=== PATIENT | female | born 1945 | race Caucasian/White ===

== ENCOUNTER 2016-05-13 09:29 | Outpatient (CLI) | payer MEDICARE, OTHER | END 2016-05-13 09:30 | disposition EMS.NT | DX: R53.1 Weakness (principal); W18.30XA Fall on same level, unspecified, initial encounter; Y92.9 Unspecified place or not applicable ==

== ENCOUNTER 2016-05-14 18:36 | Outpatient (CLI) | payer MEDICARE, OTHER | END 2016-05-14 18:37 | disposition critical access hospital (66) | DX: R53.1 Weakness (principal) | CPT/HCPCS: A0425; A0429 ==

== ENCOUNTER 2016-05-14 18:44 | Observation (INO) | payer MEDICARE, OTHER ==
[2016-05-14] MEDS ORDERED: SODIUM CHLORIDE 0.9% 1,000 ML IV ONE (19:38)
--- NOTE | 2016-05-14 20:30 | ED Physician Documentation ---
History of Present Illness - Stated complaint Stated Complaint: WEAKNESS - Chief complaint Chief Complaint: Ext Problem - History obtained from History obtained from: Patient - History of Present Illness Timing: How many days ago (2) Pain level now: 0 Improved by: rest Worsened by: attempts to stand or ambulate - Additonal information Additional information: patient is a poor historian, does not seem to be familiar with some of her medical history (for example, she is on supplemental [place] oxygen at home x 3 years , but does not know why and tells me she is unaware of any pulmonary problems or diagnoses). Patient fell 2 nights ago due to generalized weakness at home, was unable to get back up (again, due to generalized weakness). manager trust arrived, patient refused transport, but instead was helped into a chair. She stayed in that chair until tonight, when she finally decided to call 911 because she was too weak to get out of the chair. Reportedly, she had feces and urine on her dress on arrival to ED. Review of Systems Constitutional: reports: Reviewed and negative Eyes: reports: Reviewed and negative Ears: reports: Reviewed and negative Nose: reports: Reviewed and negative Throat: reports: Reviewed and negative Cardiac: reports: Reviewed and negative Respiratory: reports: Reviewed and negative GI: reports: Reviewed and negative : reports: Reviewed and negative Musculoskeletal: reports: Reviewed and negative Neurologic: reports: Generalized weakness. denies: Focal weakness, Numbness, Headache PD PAST MEDICAL HISTORY - Past Medical History Past Medical History: Yes Cardiovascular: Hypertension, High cholesterol, Deep vein thrombosis Respiratory: COPD, Sleep apnea, CPAP use Neuro: Peripheral neuropathy Endocrine/Autoimmune: Type 2 diabetes GI: None : Incontinence HEENT: None Musculoskeletal: Chronic back pain Derm: Psoriasis - Past Surgical History Past Surgical History: Yes HEENT: Tonsil/Adenoidectomy - Present Medications Home Medications: Ambulatory Orders Medication Instructions Recorded Confirmed Aspirin [Barbara Chewable Aspirin] 1 tab.chew PO DAILY 02/14/14 05/14/16 Cholecalciferol (Vitamin D3) 2,000 unit PO DAILY 02/14/14 05/14/16 [Vitamin D3] Furosemide 40 mg PO DAILY 02/14/14 05/14/16 Glyburide 1 tab PO BID 02/14/14 05/14/16 Insulin Glargine [Lantus Solostar] 100 units SQ DAILY 02/14/14 05/14/16 Lovastatin 40 mg PO DAILY 02/14/14 05/14/16 Metoprolol Tartrate 1 tab PO BID 02/14/14 05/14/16 - Allergies Allergies/Adverse Reactions: Allergies Allergy/AdvReac Type Severity Reaction Status Date / Time No Known Drug Allergies Allergy Verified 02/14/14 16:33 - Social History Does the pt smoke?: No Smoking Status: Never smoker Does the pt drink ETOH?: No Does the pt have substance abuse?: No - Immunizations Immunizations are current?: No - POLST Patient has POLST: Yes PD ED PE NORMAL - Vitals Vital signs reviewed: Yes - General General: Alert and oriented X 3, No acute distress, Other (morbid obesity) - HEENT HEENT: PERRL, EOMI, Moist mucous membranes - Neck Neck: Supple, no meningeal sign - Respiratory Respiratory: Other (distant breath sounds, R>L) - Abdomen Abdomen: Soft, Non tender, Non distended - Back Back: No CVA TTP - Derm Derm: Warm and dry, Other (bilateral inguinal exanthem with sharp margins c/w intertrigo (dry, scaly edges; hyperpigmented exanthem)) - Extremities Extremities: No tenderness to palpate, Normal ROM s pain - Neuro Neuro: Alert and oriented X 3 PD ED PE EXPANDED - Cardiac Cardiac: Tachy, Irregularly irregular - Rectal Rectal: Heme Occult Neg - QC+, Aluminum Sheet Cutter present - Extremities Extremities: Pedal edema bilateral Results - Vitals Vitals: Vital Signs - 24 hr 05/14/16 05/14/16 05/14/16 18:51 20:46 20:49 Temperature 36.8 C 36.8 C Heart Rate 129 H 85 134 H Respiratory 18 22 18 Rate Blood Pressure 161/79 H 153/79 H 153/79 H O2 Saturation 92 99 98 05/14/16 05/14/16 05/15/16 21:54 22:30 00:51 Temperature 36.4 C L 36.3 C L Heart Rate 61 79 91 Respiratory 18 28 H 20 Rate Blood Pressure 121/97 H 133/63 H 137/93 H O2 Saturation 98 92 95 Oxygen O2 Source Nasal cannula Oxygen Flow Rate 93 - EKG (time done) No standard instances Rate: Rate (enter#) (134) Rhythm: NSR [place]: Normal QRS: Normal Ischemia: Normal ST segments, T wave inversion (V2-V6) - Labs Labs: Laboratory Tests 05/14/16 05/14/16 05/14/16 20:15 20:15 20:30 WBC 8.7 RBC 3.86 L Hgb 8.7 L Hct 29.4 L MCV 76.1 L MCH 22.6 L MCHC 29.6 L RDW 19.0 H Plt Count 269 MPV 6.8 L Neut # 7.4 H Lymph # 0.8 L [place] # 0.4 Eos # 0.0 Baso # 0.0 Absolute Nucleated RBC 0.00 Nucleated RBCs 0.0 Manual Slide Review Indicated Platelet Estimate NORMAL (130-450,000) Platelet Morphology NORMAL APPEARANCE RBC Morph Micro Appear 1+ ANISOCYTOSIS VBG pH VBG pCO2 VBG pO2 VBG HCO3 VBG Total CO2 VBG O2 Saturation VBG Base Excess Sodium 131 L Potassium 3.7 Chloride 94 L Carbon Dioxide 27 Anion Gap 10.0 BUN 28 H Creatinine 1.4 H Estimated GFR (MDRD) 37 L Glucose 391 H Lactic Acid Calcium 8.0 L Total Creatine Kinase CK-MB (CK-2) Troponin I < 0.04 B-Natriuretic Peptide TSH Urine Color Urine Clarity Urine pH Ur Specific [place] Urine Protein Urine Glucose (UA) Urine Ketones Urine Occult Blood Urine Nitrite Urine Bilirubin Urine Urobilinogen Ur Leukocyte Esterase Urine RBC Urine WBC Ur Squamous Epith Cells Urine Bacteria Ur Microscopic Review Urine Culture Comments 05/14/16 05/14/16 05/14/16 20:40 20:40 20:40 WBC RBC Hgb Hct MCV MCH MCHC RDW Plt Count MPV Neut # Lymph # [place] # Eos # Baso # Absolute Nucleated RBC Nucleated RBCs Manual Slide Review Platelet Estimate Platelet Morphology RBC Morph Micro Appear VBG pH VBG pCO2 VBG pO2 VBG HCO3 VBG Total CO2 VBG O2 Saturation VBG Base Excess Sodium Potassium Chloride Carbon Dioxide Anion Gap BUN Creatinine Estimated GFR (MDRD) Glucose Lactic Acid 1.5 Calcium Total Creatine Kinase 150 CK-MB (CK-2) 2.4 Troponin I B-Natriuretic Peptide TSH Urine Color Urine Clarity Urine pH Ur Specific [place] Urine Protein Urine Glucose (UA) Urine Ketones Urine Occult Blood Urine Nitrite Urine Bilirubin Urine Urobilinogen Ur Leukocyte Esterase Urine RBC Urine WBC Ur Squamous Epith Cells Urine Bacteria Ur Microscopic Review Urine Culture Comments 05/14/16 05/14/16 05/15/16 23:30 23:30 01:15 WBC RBC Hgb Hct MCV MCH MCHC RDW Plt Count MPV Neut # Lymph # [place] # Eos # Baso # Absolute Nucleated RBC Nucleated RBCs Manual Slide Review Platelet Estimate Platelet Morphology RBC Morph Micro Appear VBG pH VBG pCO2 VBG pO2 VBG HCO3 VBG Total CO2 VBG O2 Saturation VBG Base Excess Sodium Potassium Chloride Carbon Dioxide Anion Gap BUN Creatinine Estimated GFR (MDRD) Glucose Lactic Acid Calcium Total Creatine Kinase CK-MB (CK-2) Troponin I B-Natriuretic Peptide 363 H TSH 6.12 H Urine Color YELLOW Urine Clarity CLEAR Urine pH 6.0 Ur Specific [place] 1.015 Urine Protein 100 H Urine Glucose (UA) >=1000 H Urine Ketones TRACE Urine Occult Blood MODERATE H Urine Nitrite NEGATIVE Urine Bilirubin NEGATIVE Urine Urobilinogen 0.2 (NORMAL) Ur Leukocyte Esterase TRACE H Urine RBC 6-10 H Urine WBC 0-3 Ur Squamous Epith Cells FEW Squamous Urine Bacteria Rare Ur Microscopic Review INDICATED Urine Culture Comments INDICATED 05/15/16 02:00 WBC RBC Hgb Hct MCV MCH MCHC RDW Plt Count MPV Neut # Lymph # [place] # Eos # Baso # Absolute Nucleated RBC Nucleated RBCs Manual Slide Review Platelet Estimate Platelet Morphology RBC Morph Micro Appear VBG pH 7.446 H VBG pCO2 37.1 L VBG pO2 147.7 H VBG HCO3 25.0 VBG Total CO2 26.1 VBG O2 Saturation 98.8 H VBG Base Excess 1.0 Sodium Potassium Chloride Carbon Dioxide Anion Gap BUN Creatinine Estimated GFR (MDRD) Glucose Lactic Acid Calcium Total Creatine Kinase CK-MB (CK-2) Troponin I B-Natriuretic Peptide TSH Urine Color Urine Clarity Urine pH Ur Specific [place] Urine Protein Urine Glucose (UA) Urine Ketones Urine Occult Blood Urine Nitrite Urine Bilirubin Urine Urobilinogen Ur Leukocyte Esterase Urine RBC Urine WBC Ur Squamous Epith Cells Urine Bacteria Ur Microscopic Review Urine Culture Comments - Rads (name of study) chest xray Radiology: Prelim report reviewed, See rad report PD MEDICAL DECISION MAKING - ED course Complexity details: reviewed results, re-evaluated patient, considered differential, d/w patient ED course: Patient had good rate control with 5mg IV metoprolol. She would have brief, sudden increased heart rate to 130s-150s, but without specific intervention, the heart rate would return to 80s-90s within 1-2 minutes. Departure - Departure Disposition: ED Place in Observation Clinical Impression: Weakness, Hyperglycemia, Anemia Condition: Stable Discharge Date/Time: 05/15/16 03:24
[2016-05-14 20:43] LABS: BASOPHILS % (AUTO) 0.5 %; EOSINOPHILS % (AUTO) 0.3 %; HCT - HEMATOCRIT 29.4 % (37.0-47.0); HGB - HEMOGLOBIN 8.7 g/dL (12.0-16.0); LYMPHOCYTES # (AUTO) 0.8 10^3/uL (1.5-3.5); LYMPHOCYTES % (AUTO) 8.8 %; MEAN CORPUSCULAR HEMOGLOBIN 22.6 pg (27.0-31.0); MEAN CORPUSCULAR HGB CONC 29.6 g/dL (32.0-36.0); MEAN CORPUSCULAR VOLUME 76.1 fL (81.0-99.0); MEAN PLATELET VOLUME 6.8 fL (7.9-10.8); MONOCYTES # (AUTO) 0.4 10^3/uL (0.0-1.0); MONOCYTES % (AUTO) 5.2 %; NEUTROPHILS # (AUTO) 7.4 10^3/uL (1.5-6.6); NEUTROPHILS % (AUTO) 85.2 %; RED BLOOD COUNT 3.86 10^6/uL (4.20-5.40); UNCORRECTED WHITE BLOOD COUNT 8.7 x10^3/uL; WHITE BLOOD COUNT 8.7 x10^3/uL (4.8-10.8)
[2016-05-14] MEDS ORDERED: METOPROLOL 5 MG/5 ML VIAL IVP STA (20:48)
[2016-05-14 20:49] LABS: CREATININE 1.4 mg/dL (0.4-1.0); POTASSIUM 3.7 mmol/L (3.5-5.0)
[2016-05-14] MEDS ORDERED: METOPROLOL 5 MG/5 ML VIAL IVP ONE (20:50)
[2016-05-14 21:01] LABS: PLATELET ESTIMATE, MANUAL NORMAL (130-450,000) (NORMAL); PLATELET MORPHOLOGY NORMAL APPEARANCE (NORMAL)
--- NOTE | 2016-05-14 21:28 | XRAY Preliminary Report ---
Exam: XR Chest 2 View PA/LAT IMPRESSION: 1. Moderate cardiomegaly and borderline vascular congestion. 2. The relatively gradual increase in the caliber of the right hilum encouraging this most likely rep resents benign etiology such as secondary to pulmonary arterial hypertension. However, malignant veronica opathy or mass lesion not excluded. [facility] SITE ID: [id number]
--- NOTE | 2016-05-14 21:39 | XRAY Report ---
EXAM: CHEST RADIOGRAPHY EXAM DATE: 05/14/2016 08:47 PM. CLINICAL HISTORY: Weakness. COMPARISON: 05/02/2012. No earlier exams. TECHNIQUE: 2 views. FINDINGS: Lungs/Pleura: Borderline vascular congestion. No focal consolidation, effusion nor pneumothorax. Norm al lung volumes. Mediastinum: Increasing cardiomegaly now moderate in degree. Mild increase in the right hilar enlarge ment. No mediastinal widening. Other: None. IMPRESSION: 1. Moderate cardiomegaly and borderline vascular congestion. 2. The relatively gradual increase in the caliber of the right hilum encouraging, this most likely re presents benign etiology such as secondary to pulmonary arterial hypertension. However, malignant angela nopathy or mass lesion not excluded. [facility] Referring Provider Line: [phone] SITE ID: [id number]
[2016-05-15 01:25] LABS: BILIRUBIN,URINE NEGATIVE (NEGATIVE)
[2016-05-15 01:26] LABS: UA w/ MICROSCOPIC CHARGE YES
[2016-05-15 01:31] LABS: UR CULTURE IF IND INDICATED; WBC,URINE 0-3 /HPF (0-5)
[2016-05-15 02:09] LABS: VBG PH 7.446 (7.31-7.41); VBG TOTAL CO2 26.1 mmol/L (24-29)
[2016-05-15] MEDS ORDERED: METOPROLOL 5 MG/5 ML VIAL IVP PRN (02:09)
[2016-05-15] MEDS ORDERED: ACETAMINOPHEN 325 MG TABLET PO PRN (02:09)
[2016-05-15] MEDS ORDERED: SODIUM CHLORIDE FLUSH 0.9% 10 ML SYRINGE IVP PRN (02:09)
[2016-05-15] MEDS ORDERED: ONDANSETRON 4 MG/2 ML VIAL IVP PRN (02:09)
[2016-05-15 02:10] LABS: VBG OXYGEN SATURATION 98.8 % (60-80)
[2016-05-15] MEDS ORDERED: INSULIN GLARGINE 300 UNIT/3 ML PEN SUBQ SCH ×2 (03:00→21:00)
[2016-05-15] MEDS ORDERED: SODIUM CHLORIDE 0.9% 1,000 ML IV SCH (03:00)
--- NOTE | 2016-05-15 03:06 | CT Preliminary Report ---
Exam: CT Head W/O IMPRESSION: Moderate senescent changes without evidence of acute intracranial abnormality. [facility] SITE ID: [id number]
--- NOTE | 2016-05-15 03:09 | CT Report ---
EXAM: CT HEAD EXAM DATE: 05/15/2016 02:50 AM. CLINICAL HISTORY: Weakness, recent fall. COMPARISON: 05/03/2012. TECHNIQUE: Multiaxial CT images were obtained from the foramen magnum to the vertex. IV contrast: Non e. Reformats: Coronal. In accordance with CT protocol optimization, one or more of the following dose reduction techniques w ere utilized for this exam: automated exposure control, adjustment of mA and/or KV based on patient s ize, or use of iterative reconstructive technique. FINDINGS: Parenchyma: No intraparenchymal hemorrhage. No evidence of mass, midline shift or CT findings of acut e infarction. Castro-white differentiation is distinct. Diffuse moderate chronic microangiopathic white matter changes are evident. Extraaxial Spaces: Normal for age. No subdural or epidural collections identified. Ventricles: The ventricles and cortical sulci are enlarged, consistent with age-related tissue loss. Sinuses: Imaged paranasal sinuses, orbits, and mastoids show no significant abnormality. Bones: No evidence of fracture or calvarial defect. Other: None. IMPRESSION: Moderate senescent changes without evidence of acute intracranial abnormality. [facility] Referring Provider Line: [phone] SITE ID: [id number]
--- NOTE | 2016-05-15 04:00 | HISTORY & PHYSICAL EXAMINATION ---
DATE OF ADMISSION: 05/15/2016 PRIMARY CARE PHYSICIAN: Alexandra Steinberg MD. CHIEF COMPLAINT: Brought in by EMS for weakness. HISTORY OF PRESENT ILLNESS: This is a 70-year-old female who is an extremely poor historian who was brought in today. Apparently, she fell 2 nights ago and was unable to get back up. architectural technologist arrived then and the patient refused transport, but was helped to a chair, and apparently 911 was called again tonight because she was too weak to get out of her chair. Her evaluation in the emergency room does show RVR AFib, which did respond to IV metoprolol per ER MD. Labs were significant for anemia with a hematocrit of 29.4, MCV 76.1. Per ER MD, she was guaiac negative. No old labs are available at this time. She also has a calculated GFR of 37 with a BUN of 28, creatinine of 1.4. Per old records that could be found in the EMR, which is [facility], she does have stage IV chronic renal failure secondary to hypertensive and diabetic disease. This note is from 07/2012. She also has type 2 diabetes, for which she is on Lantus therapy. Per ER note, her glucose on labs was 391. No LFTs were obtained, total CK was 150. Troponin was less than 0.04. BNP 363. No documentation of previous echocardiograms. Of note, it appears the patient has CHRISTIANO. She has morbid obesity and does use CPAP at home. Again, unable to get a good history from her , as she is generally just sarcastic with her answers and vague. A venous blood gas is pending at the time of this dictation. CT of head without contrast is pending at the time of this dictation. PAST MEDICAL HISTORY 1. Morbid obesity. 2. CHRISTIANO with use of CPAP. 3. Type 2 diabetes. 4. Peripheral neuropathy. 5. Hypertension. 6. Hyperlipidemia. 7. Chronic atrial fibrillation. 8. Status post tonsillectomy. MEDICATIONS UPON ADMISSION 1. ASA 81 mg p.o. daily. 2. Vitamin D3 at 2000 units p.o. daily. 3. Lasix 40 mg p.o. daily. 4. Glyburide 1 tab p.o. b.i.d., unknown dose. 5. Lantus 100 units subcutaneous daily. 6. Lovastatin 40 mg p.o. daily. 7. Metoprolol 1 tab p.o. b.i.d., unknown dose. SOCIAL HISTORY: Lives alone in [place]. Smoking: None. Alcohol: None. FAMILY MEDICAL HISTORY: Denies any history of diabetes or coronary artery disease. REVIEW OF SYSTEMS: Denies any fevers, chills. Denies cough. All other review of systems are negative except for as in the HPI. PHYSICAL EXAMINATION VITAL SIGNS: Heart rate 91, temperature afebrile, blood pressure 137/93, respiratory rate 20, O2 saturation 95% on 4 liters nasal cannula. Per ER MD, the patient uses 2 liters nasal cannula at home. CONSTITUTIONAL: An extremely disheveled female, morbidly obese. HEAD: Normocephalic, atraumatic. EYES: PERRLA-DC EOMI. MOUTH: No lesions. NECK: No adenopathy. CHEST: Decreased breath sounds at her bases. COR: Irregular irregular rate and rhythm, S1, S2. ABDOMEN: Soft, nontender. Bowel sounds present. EXTREMITIES: She has 1+ lower extremity edema with stasis dermatitis present and some superficial abrasions on the anterior salas area bilaterally. She also has onychomycosis of nails and tinea pedis. SKIN: As noted above. PSYCHIATRIC: Mood and affect are difficult to assess given her vague answers. She is somewhat uncooperative. NEUROLOGIC: She is alert. She is oriented x3, moves all extremities equally. LABORATORY: As above, also to include chest x-ray, which reveals moderate cardiomegaly and borderline vascular congestion, relatively gradual increase in the caliber of the right hilum, most likely represents pulmonary arterial hypertension. Sodium 131, potassium 3.7, chloride 94, bicarbonate 27, BUN 28, creatinine 1.4, calculated GFR 37, glucose 391. Lactic acid 1.5, calcium 8.0, CK 150. Troponin less than 0.04. BNP of 363, hepatic panel is pending. UA shows specific gravity 1.015, protein 100, glucose greater than 1000, trace ketones, moderate occult blood, leukocyte esterase trace, 0-3 WBCs, 6-10 RBCs, few squamous epithelial cells, rare bacteria. White count 8.7, hematocrit 29.4, MCV 76.1, platelets 269. ASSESSMENT AND PLAN 1. Rapid ventricular rate atrial fibrillation, acute, present on admission. Apparently the patient does have a history of atrial fibrillation, although she is a difficult historian. We will go ahead and put her on metoprolol tartrate [address] on telemetry, check serial cardiac enzymes, get echocardiogram. We will also check a TSH. 2. Type 2 diabetes, chronic, present on admission with current hyperglycemia. We will give her a dose of Lantus tonight, 50 units subcutaneous and then try to verify her dose in the a.m. We will get records from Dr. Steinberg, place on high subcutaneous insulin NovoLog scale, check hemoglobin A1c. 3. Obstructive sleep apnea, chronic, present on admission. We will get outpatient records. Monitor O2 saturations. 4. Weakness and Placement concerns. We will get PT consultation, get Installer Inspector Final consultation to evaluate home living situation as it sounds she is not functioning well living alone. 5. Deep venous thrombosis prophylaxis. SCDs, place on subcutaneous heparin. 6. Code status: The patient is fairly cooperative, so by default FULL CODE. TIME SPENT: 60 minutes. JOB #: [id number] EXT JOB #:[id number] EDIS
[2016-05-15] MEDS: SODIUM CHLORIDE FLUSH 0.9% 10 ML SYRINGE IVP SCH ×3 (04:28→21:06)
[2016-05-15 04:40] LABS: ALBUMIN/GLOBULIN RATIO 0.6 (1.0-2.2); BILIRUBIN,TOTAL 0.4 mg/dL (0.2-1.0); CREATININE 1.4 mg/dL (0.4-1.0); POTASSIUM 3.7 mmol/L (3.5-5.0)
[2016-05-15] MEDS ORDERED: INSULIN REGULAR HUMAN 100 UNIT/1 ML 10 ML MDV SUBQ SCH (06:10)
[2016-05-15] MEDS ORDERED: METOPROLOL TARTRATE 50 MG TABLET ONE (06:12)
[2016-05-15] MEDS: METOPROLOL TARTRATE 50 MG TABLET PO SCH ×2 (06:16→19:59)
[2016-05-15 08:05] LABS: HEMOGLOBIN A1C 0.91 g/dL
[2016-05-15] MEDS: INSULIN ASPART 300 UNIT/3 ML PEN SUBQ SCH ×4 (08:29→21:05)
[2016-05-15] MEDS ORDERED: GLUCAGON 1 MG/ML VIAL SUBQ PRN (09:41)
[2016-05-15] MEDS ORDERED: DEXTROSE 50% ABBOJECT 25 GM/50 ML SYRINGE IVP PRN (09:41)
[2016-05-15] MEDS ORDERED: DEXTROSE GEL 37.5 GM TUBE PO PRN (09:41)
[2016-05-15] MEDS ORDERED: DEXTROSE 5% 1,000 ML IV PRN (09:41)
[2016-05-15] MEDS: HEPARIN 5,000 UNIT/ML VIAL SUBQ SCH ×2 (11:09→21:04)
[2016-05-15] MEDS: INSULIN GLARGINE 300 UNIT/3 ML PEN SUBQ SCH (11:09)
[2016-05-15] MEDS: FUROSEMIDE 20 MG TABLET PO SCH (11:09)
[2016-05-15] MEDS: ASCORBIC ACID CHEW 500 MG TABLET PO SCH ×2 (11:09→19:59)
[2016-05-15] MEDS: FERROUS SULFATE 325 MG TABLET PO SCH ×2 (11:09→16:39)
[2016-05-15] MEDS: POLYETHYLENE GLYCOL 3350 17 GM PACKET PO SCH (11:10)
[2016-05-15] MEDS ORDERED: INSULIN ASPART 300 UNIT/3 ML PEN SUBQ ONE (12:18)
[2016-05-15] MEDS: NYSTATIN POWDER 15 GM TOP SCH ×2 (12:33→21:06)
[2016-05-15 13:21] LABS: IMMATURE RETIC FRACTION 0.5; RED BLOOD COUNT 3.62 10^6/uL (4.20-5.40)
[2016-05-15 13:50] LABS: IRON 81 ug/dL (28-170); TOTAL IRON BINDING CAPACITY 364 ug/dL (250-450); TRANSFERRIN 260 mg/dL (192-382)
[2016-05-15 14:40] LABS: FERRITIN 38.2 ng/mL (11.0-306.8)
--- NOTE | 2016-05-15 15:01 | PROVIDER PROGRESS NOTE ---
Subjective - Prog Note Date Prog Note Date: 05/15/16 Prog Note Time: 14:45 - Subjective Subjective: I have reviewed some of the chart. She was last hospitalized in 2012 and had been placed in a group home facility after that for pretty much the same scenario as now. She was in rehab for physical therapy for 4-5 months and getting her strength back. To control her apnea, she was placed on a CPAP machine. She returned to home and had home health for a few weeks. Since that time, she was last seen in 2013 with her primary care provider at [facility]. She is still getting her medications filled on a regular basis which includes her Lasix, gabapentin, glyburide, lovastatin, metoprolol, and Lantus. I spoke to her brother Kumar. He travels a lot and just came back from [facility]. He is on his way to [facility] and [place] in the next week. His cell phone number is [phone]. They live on the same family property and she lives in their childhood home, their mother's home. He describes a gently deteriorating status with regards to mobility and self-care. It's taken a long time for her to get this bad. In the last month he has noticed that she is not driving. Not bathing. They don't really talk about real issues between them. They respect each other and love each other but discussing personal matters is not in their family style. He would not ever point out to her that she smells because she doesn't bathe. He doesn't remember if there was a specific event that caused her to deteriorate faster than usual. She herself states that there has been no coughing wheezing. No fevers, no myalgias. Her legs are just started getting weaker. They've been trembling since last Friday. Hard for her to ambulate. Pain, no falls. Sometimes she brushes her legs up against furniture and tears the skin a little over her shins. She has chronic venous stasis. Up until the last few weeks she was still driving, mobile within the home. He thinks she last drove a month ago. Since being in observation status, there has been no change other than the documented morbid obesity and most likely obesity hypoventilation syndrome and obstructive sleep apnea. She has a CPAP mask that she got from when she was in [place] but has never been evaluated for sleep lab. She is sure that she's been compliant with that. She's not been so compliant with her medications. Physical therapy confirms that she is able to roll over in bed. Can help you help her sit up. But she cannot stand to transfer. Her legs won't support her. Arms are really strong. The wound care nurse from the [facility] confirms venous stasis dermatitis. She was written a note in the chart. Current Medications - Current Medications Current Medications: Active Medications Acetaminophen (Tylenol) 650 mg PO Q4HR PRN PRN Reason: Pain 1 to 4 Ascorbic Acid (Vitamin C) 500 mg PO BID [facility] Last Admin: 05/15/16 11:09 Dose: 500 mg Ferrous Sulfate (Feosol) 325 mg PO BIDWM [facility] Last Admin: 05/15/16 11:09 Dose: 325 mg Furosemide (Lasix) 40 mg PO DAILY [facility] Last Admin: 05/15/16 11:09 Dose: 40 mg Heparin Sodium (Porcine) () 5,000 unit SUBQ BID [facility] Last Admin: 05/15/16 11:09 Dose: 5,000 unit Insulin Aspart (Novolog) 3 - 11 unit SUBQ 0800,1200,1700,2100 [facility] PRN Reason: Protocol Last Admin: 05/15/16 12:38 Dose: Not Given Insulin Glargine (Lantus Solostar) 40 unit SUBQ QDBREAKFAST [facility] Last Admin: 05/15/16 11:09 Dose: 40 unit Insulin Glargine (Lantus Solostar) 60 unit SUBQ QPM [facility] Metoprolol Tartrate (Lopressor) 50 mg PO BID [facility] Last Admin: 05/15/16 06:16 Dose: 50 mg Metoprolol Tartrate (Lopressor Inj) 5 mg IVP Q4H PRN PRN Reason: HR >110 Last Admin: 05/15/16 04:20 Dose: 5 mg Nystatin (Nystop) 1 applic TOP BID [facility] Last Admin: 05/15/16 12:33 Dose: 1 applic Ondansetron HCl (Zofran Inj) 4 mg IVP Q6HR PRN PRN Reason: Nausea / Vomiting Polyethylene Glycol (Miralax) 17 gm PO DAILY [facility] Last Admin: 05/15/16 11:10 Dose: Not Given Sodium Chloride (Normal Saline Flush 0.9%) 10 ml IVP PRN PRN PRN Reason: NEEDED PER PROVIDER ORDERS Sodium Chloride (Normal Saline Flush 0.9%) 10 ml IVP Q8HR [facility] Last Admin: 05/15/16 12:38 Dose: 10 ml Aspirin [Barbara Chewable Aspirin] 81 mg PO DAILY 02/14/14 Cholecalciferol (Vitamin D3) [Vitamin D3] 2,000 unit PO DAILY 02/14/14 Furosemide 40 mg PO DAILY 02/14/14 Insulin Glargine [Lantus Solostar] 100 units SQ QPM 02/14/14 Lovastatin 40 mg PO QPM 02/14/14 Metoprolol Tartrate 50 mg PO BID 02/14/14 Gabapentin [Neurontin] 600 mg PO TID 05/15/16 Glyburide 5 mg PO BIDWM 05/15/16 Insulin Glargine,Hum.rec.anlog [Lantus Solostar] 20 unit SUBQ QDBREAKFAST Levothyroxine [Synthroid] 25 mcg PO QDAC 05/15/16 Objective - Vital Signs/Intake & Output Reviewed Vital Signs: Yes Vital Signs: Vital Signs x48h Temp Pulse Pulse Resp BP BP Pulse Ox 05/15/16 11:30 75 159/78 H 05/15/16 09:42 36.4 C L 85 20 146/77 H 94 Intake & Output: Intake & Output 05/12/16 05/13/16 05/14/16 05/15/16 23:59 23:59 23:59 23:59 Intake Total 160 Balance 160 - Objective General Appearance: positive: No acute distress, Alert, Other (super obese elderly female who has increased respiratory effort in talking, eating or rolling over in bed. needs help to foll over and can't sit up on her own.) Eyes Bilateral: positive: PERRL, EOMI ENT: positive: Pharynx nml Neck: positive: No JVD. negative: Lymphadenopathy (R), Lymphadenopathy (L), Stiff neck Respiratory: positive: Chest non-tender, Rhonchi (are more of upper airway throat sounds when she exerts herself.). negative: Wheezes, Rales Cardiovascular: positive: Regular rate & rhythm. negative: Gallop/S4, Friction rub Abdomen: positive: Non-tender, Nml bowel sounds, Other (quiet bowel sounds, can' t assess for masses since too big of panus) Skin: positive: Other (david intertrigo under all skin folds, venous stasis dermatitis) Extremities: positive: Full ROM (but weak, weak legs.) Neurologic/Psychiatric: positive: Oriented x3, CN's nml (2-12), Weakness - Lab Results Fish Bones: 05/16/16 04:38 05/16/16 04:38 Other Labs: Lab Results x24hrs 05/15/16 05/15/16 05/15/16 Range/Units 13:05 13:05 13:05 RBC (4.20-5.40) 10^6/uL Reticulocyte % (Auto) (0.5-2.3) % Absolute Retic (0.020-0.110) 10^6/uL Sodium (135-145) mmol/L Potassium (3.5-5.0) mmol/L Chloride (101-111) mmol/L Carbon Dioxide (21-32) mmol/L Anion Gap (6-13) BUN (6-20) mg/dL Creatinine (0.4-1.0) mg/dL Estimated GFR (MDRD) (>89) Glucose (70-100) mg/dL Glycated Hemoglobin (4.6-6.2) % Estim Average Glucose (70-100) Calcium (8.5-10.3) mg/dL Iron 81 (28-170) ug/dL TIBC 364 (250-450) ug/dL % Saturation 22 (20-50) % Transferrin 260 (192-382) mg/dL Ferritin 38.2 (11.0-306.8) ng/mL Total Bilirubin (0.2-1.0) mg/dL AST (10-42) IU/L ALT (10-60) IU/L Alkaline Phosphatase (42-121) IU/L Lactate Dehydrogenase 163 (91-225) IU/L Troponin I (<0.49) ng/mL Total Protein (6.7-8.2) g/dL Albumin (3.2-5.5) g/dL Globulin (2.1-4.2) g/dL Albumin/Globulin Ratio (1.0-2.2) Vitamin B12 208 (180-914) pg/mL 05/15/16 05/15/16 05/15/16 Range/Units 13:05 10:50 04:10 RBC 3.62 L (4.20-5.40) 10^6/uL Reticulocyte % (Auto) 2.45 H (0.5-2.3) % Absolute Retic 0.089 (0.020-0.110) 10^6/uL Sodium (135-145) mmol/L Potassium (3.5-5.0) mmol/L Chloride (101-111) mmol/L Carbon Dioxide (21-32) mmol/L Anion Gap (6-13) BUN (6-20) mg/dL Creatinine (0.4-1.0) mg/dL Estimated GFR (MDRD) (>89) Glucose (70-100) mg/dL Glycated Hemoglobin 11.9 H (4.6-6.2) % Estim Average Glucose 295 H (70-100) Calcium (8.5-10.3) mg/dL Iron (28-170) ug/dL TIBC (250-450) ug/dL % Saturation (20-50) % Transferrin (192-382) mg/dL Ferritin (11.0-306.8) ng/mL Total Bilirubin (0.2-1.0) mg/dL AST (10-42) IU/L ALT (10-60) IU/L Alkaline Phosphatase (42-121) IU/L Lactate Dehydrogenase (91-225) IU/L Troponin I < 0.04 (<0.49) ng/mL Total Protein (6.7-8.2) g/dL Albumin (3.2-5.5) g/dL Globulin (2.1-4.2) g/dL Albumin/Globulin Ratio (1.0-2.2) Vitamin B12 (180-914) pg/mL 05/15/16 05/15/16 Range/Units 04:10 04:10 RBC (4.20-5.40) 10^6/uL Reticulocyte % (Auto) (0.5-2.3) % Absolute Retic (0.020-0.110) 10^6/uL Sodium 133 L (135-145) mmol/L Potassium 3.7 (3.5-5.0) mmol/L Chloride 96 L (101-111) mmol/L Carbon Dioxide 27 (21-32) mmol/L Anion Gap 10.0 (6-13) BUN 28 H (6-20) mg/dL Creatinine 1.4 H (0.4-1.0) mg/dL Estimated GFR (MDRD) 37 L (>89) Glucose 449 H (70-100) mg/dL Glycated Hemoglobin (4.6-6.2) % Estim Average Glucose (70-100) Calcium 8.0 L (8.5-10.3) mg/dL Iron 22 L (28-170) ug/dL TIBC 358 (250-450) ug/dL % Saturation 6 L (20-50) % Transferrin 256 (192-382) mg/dL Ferritin (11.0-306.8) ng/mL Total Bilirubin 0.4 (0.2-1.0) mg/dL AST 25 (10-42) IU/L ALT 19 (10-60) IU/L Alkaline Phosphatase 118 (42-121) IU/L Lactate Dehydrogenase (91-225) IU/L Troponin I < 0.04 (<0.49) ng/mL Total Protein 7.0 (6.7-8.2) g/dL Albumin 2.5 L (3.2-5.5) g/dL Globulin 4.5 H (2.1-4.2) g/dL Albumin/Globulin Ratio 0.6 L (1.0-2.2) Vitamin B12 (180-914) pg/mL Assessment/Plan - Problem List (1) Weakness Impression: think it's from generalized deconditioning over time and it finally took over. Can't find stroke, infection but am seeing obesity, and probable OHS and CHRISTIANO with chronic gentle respiratory failure. Plan is for dc to SNF in am long family talk with her and her brother, separately and together. They understand the problems. Hopefully short term placment with physical rehab will allow her to recover enough mobility to return home. I gently exlained it really is up to her. the strength of her ambition and spirit of cooperation with PT/OT will determine most of her success. Per PT note today: Pt. is a 70 y.o. F w/onset of profound weakness of B LE's and trunk who normally lives alone and is Independent; pt. appears to have had a gradual decline of her weakness possibly due to reported minimal activity at home; she is now unable to sit or stand w/o skilled assistance; she will need continued PT , 1-2x/day for strengthening and functional activity; recommend pt. transfer out of bed at this time using mechanical lift; PT will continue to work w/Pt. on standing and pre-gait activities while in hospital. Recommned transfer to SNF after hopsital stay; she will not be a safe transfer home unless she has real time analyst care and would need BLS for transport. PT educated pt. on the need for her participation and consistent effort during PT sessions and w/home ex. to achieve her goals of being able to stand, walk. (2) Type 2 diabetes mellitus, uncontrolled Impression: I have resumed her lantus but am using split dose and will add fixed dose short acting insulin. I gave 26 units just before lunch. no metformin or sulfonylurea for now. Noncompliance and lack of motivation is a self admitted problem for her. Qualifiers: Diabetes mellitus complication status: with neurologic complications Diabetes mellitus complication detail: with polyneuropathy Diabetes mellitus skilled nursing insulin use: with intermediate card tender use Qualified Code(s): E11.42 - Type 2 diabetes mellitus with diabetic polyneuropathy; E11.65 - Type 2 diabetes mellitus with hyperglycemia; Z79.4 - MCFP (current) use of insulin (3) Chronic atrial fibrillation with RVR Impression: she now has better rate control and she is NOT on anticoagulation. In looking at the single note from her PCP at [facility] in 2013, she does NOT have afib as a diagnosis. this could be the reason she deteriorated in addition to the vascular congestion and large heart seen on CXR. ECHO has been ordered. Add eliquis for now. continue metoprolol. (4) Pulmonary HTN Impression: suspected on the basis of her right sided heart failure exam findings, the CHRISTIANO and OHS findings. Again find ECHO. I have asked her brother to bring in her CPAP machine. will also check ABG to assess pCO2 level. (5) Essential hypertension Impression: on metoprolol and BP >140/90. Add LANCE. (6) Venous stasis dermatitis of both lower extremities Impression: [facility] wound nurse has seen and given instructions. (7) Candidiasis, intertrigo Impression: nystatin powder bid
[2016-05-15] MEDS: LISINOPRIL 5 MG TABLET PO SCH (15:54)
[2016-05-15] MEDS ORDERED: diltiaZEM INJ 5 MG/ML VIAL IVP ONE (18:05)
[2016-05-16 05:17] LABS: EOSINOPHILS # (AUTO) 0.2 10^3/uL (0.0-0.7); EOSINOPHILS % (AUTO) 2.2 %; HCT - HEMATOCRIT 28.9 % (37.0-47.0); HGB - HEMOGLOBIN 8.7 g/dL (12.0-16.0); LYMPHOCYTES # (AUTO) 1.4 10^3/uL (1.5-3.5); NEUTROPHILS # (AUTO) 7.4 10^3/uL (1.5-6.6)
[2016-05-16 05:19] LABS: BASOPHILS % (AUTO) 0.4 %; LYMPHOCYTES % (AUTO) 14.5 %; MEAN CORPUSCULAR HEMOGLOBIN 22.7 pg (27.0-31.0); MEAN CORPUSCULAR VOLUME 75.6 fL (81.0-99.0); MONOCYTES # (AUTO) 0.6 10^3/uL (0.0-1.0); MONOCYTES % (AUTO) 6.6 %; NEUTROPHILS % (AUTO) 76.3 %; NUCLEATED RED BLOOD CELLS AUTO 0.1 /100WBC; RED BLOOD COUNT 3.82 10^6/uL (4.20-5.40); RED CELL DISTRIBUTION WIDTH 19.3 % (12.0-15.0); UNCORRECTED WHITE BLOOD COUNT 9.7 x10^3/uL; WHITE BLOOD COUNT 9.7 x10^3/uL (4.8-10.8)
[2016-05-16 05:26] LABS: CALCIUM 8.4 mg/dL (8.5-10.3); CREATININE 1.2 mg/dL (0.4-1.0); POTASSIUM 3.3 mmol/L (3.5-5.0)
[2016-05-16] MEDS: SODIUM CHLORIDE FLUSH 0.9% 10 ML SYRINGE IVP SCH (05:40)
[2016-05-16] MEDS ORDERED: POTASSIUM CHLORIDE 20 MEQ TABLET PO SCH (07:50)
[2016-05-16] MEDS: INSULIN GLARGINE 300 UNIT/3 ML PEN SUBQ SCH (08:10)
[2016-05-16] MEDS: INSULIN ASPART 300 UNIT/3 ML PEN SUBQ SCH (08:10)
[2016-05-16] MEDS: METOPROLOL TARTRATE 50 MG TABLET PO SCH (08:12)
[2016-05-16] MEDS: FUROSEMIDE 20 MG TABLET PO SCH (08:12)
[2016-05-16] MEDS: LISINOPRIL 5 MG TABLET PO SCH (08:12)
[2016-05-16] MEDS: ASCORBIC ACID CHEW 500 MG TABLET PO SCH (08:13)
[2016-05-16] MEDS: FERROUS SULFATE 325 MG TABLET PO SCH (08:13)
[2016-05-16] MEDS: POLYETHYLENE GLYCOL 3350 17 GM PACKET PO SCH (08:13)
[2016-05-16] MEDS: NYSTATIN POWDER 15 GM TOP SCH (08:15)
[2016-05-16] MEDS: HEPARIN 5,000 UNIT/ML VIAL SUBQ SCH (08:18)
[2016-05-16] MEDS ORDERED: diltiaZEM CD 120 MG CAPSULE PO SCH (09:00)
[2016-05-16 09:28] VITALS: BP 116/59
--- NOTE | 2016-05-16 15:38 | DISCHARGE SUMMARY ---
DATE OF ADMISSION: 05/15/2016 DATE OF DISCHARGE: 05/16/2016 DISCHARGE DIAGNOSES 1. Generalized weakness and deconditioning. 2. Type 2 diabetes mellitus, uncontrolled, with long-term insulin use with complications of neuropathy. 3. Atrial fibrillation with rapid ventricular response, presumed chronic. 4. New pulmonary hypertension. 5. New cor pulmonale. 6. Obstructive sleep apnea on CPAP. 7. Hypertension. 8. Venous stasis dermatitis. 9. Anemia, nonspecific. 10. Chronic renal failure, stage III. 11. Super obesity. 12. Loraine intertrigo. DISCHARGE MEDICATIONS 1. Tylenol 650 mg p.o. q.4 h. p.r.n. pain, fever, headache. 2. Zofran 4 mg ODT sublingual q.4 h. p.r.n. nausea. 3. Lasix 40 mg daily. 4. Diltiazem CD 120 mg daily. 5. Metoprolol 50 mg p.o. b.i.d. 6. Nystatin powder topically b.i.d. to affected areas for a minimum of 2 weeks. 7. Lantus 60 units subcutaneous at bedtime, 40 units subcutaneous q.a.m. 8. Ferrous sulfate 325 mg p.o. daily. 9. Ascorbic acid 500 mg p.o. daily. 10. Lisinopril 5 mg p.o. daily. 11. Eliquis 5 mg p.o. b.i.d. PRINCIPAL PROCEDURES 1. Echocardiogram showing a left ventricle size that is normal, mild concentric left ventricular hypertrophy. Overall, left ventricular systolic function normal with ejection fraction of 60% to 65%. She has moderate right ventricular enlargement, right ventricular systolic function is normal. Moderate tricuspid regurgitation with moderately abnormal right heart pressures and right ventricular systolic pressure at rest is 67 mmHg. 2. A1c is 11.9%. 3. Iron is 81, TIBC 364, percent saturation 22, transferrin 260, ferritin 38. LDH is 163. Vitamin B12 is 224. Reticulocyte count mildly elevated at 2.45% with absolute reticulocyte count 0.089. HOSPITAL COURSE: This patient is a 70-year-old female who still lives in her own home. She is morbidly obese and is described as a stubborn personality. Her brother lives on the same property as she does, and she lives in her mother's home. Mom has been for about a decade and a half. Her chronic diagnoses are that of morbid obesity, diabetes, hypertension. At one point, she ended up in a rehab facility, probably [facility], in 2012 because of her chronic problems and immobility status. She received rehabilitation for 4 -5 months and obtained a CPAP mask there. From there, she went home with home health for a few weeks. She last saw her primary care provider in 2013. Brother describes a gently deteriorating status over the last few years. She has not kept up with exercise. He does not know about her CPAP mask, but she says she uses it daily. She is still managing to be mobile within the home, uses a walker, and was driving up until a month ago. Since then, she cannot say why, she is just losing strength. About a week ago, her legs started just trembling if she would stand up and walk. Once this week EMS was called because she could not get up out of a chair. They helped her up, and once she was up, she was able to get going, but then EMS was called again on the day of admission because she could not get up. This time she came to the hospital. There is no antecedent illness history. No coughing, no wheezing, no shortness of breath. No fever, no chills. She denies palpitations, angina. She had no problems with urgency, frequency, dysuria. No syncope, no headaches. No neurological focal deficits. In the emergency room, she was identified as having hyperglycemia, a chronic anemia of 8.7 hemoglobin with an MCV of 76. An A1c was 11.9%. BUN and creatinine were 24 and 1.2. Urinalysis had moderate hematuria, trace leukocyte esterase, red cells 6-10. A urine C and S has been sent off but is pending at the time of this discharge. The patient was not on antibiotics during this stay. Also identified on her physical exam with her labs was that of Loraine intertrigo, severe venous stasis dermatitis of the lower extremities, and the right lower extremity had a large eschar on it, but it was not open and draining. It was not felt to be infected. MAC nurse did come see her for wound care, and it was simple dressing changes that were recommended. The patient was notably short of breath with exertion. EKG showed her to have a new atrial fibrillation that had not been present on previous studies and review of her old records from her PCP's office in 2013. As such, she may have new atrial fibrillation, but it is unclear how long she has had it. As such, she was started on rate control with diltiazem added to her usual metoprolol, and Eliquis was added. She may be a candidate for cardioversion in the next month when she has been anticoagulated long enough. She received Lasix IV during her stay. Overall, her shortness of breath improved, but her overall decreased mobility did not. She can roll over and help you when she rolls over to one side of the bed to the other, but she needs max assist with sitting and standing. Physical therapy did work with her. She has profound lower extremity and trunk weakness, and she is unable to lift her lower extremities or transfer to sitting or standing safely. It is hoped that she can get rehab for strengthening and functional progression of activity toward standing and walking. Her goal is to be able to return home independently. She understands that a lot of the success is going to depend on her strength and willpower and cooperation with physical therapy once she gets to the half-way facility. She needed BLS transport to the SNF because she is unable to stand on her own or sit in a wheelchair safely. Identified on her stay was not only the atrial fibrillation, but probably new cor pulmonale that is stable. She would benefit from continued diuresis and CPAP. The patient was discharged from observation status with some slight improvement in dyspnea on exertion and quite a bit more information identified as to what her problems are. She has a long road ahead of her with regards to recovery and her stated goal of getting to independent living at home again. In the meantime , she will investigate what private in home support will cost, and she will discuss with her brother, since they own the property together, what her financial opportunities are in the future. On day of discharge she had a potassium level of 3.3 and she was given po 40 meq for supplement. PHYSICAL EXAMINATION VITAL SIGNS: At discharge, temperature is 36.4, pulse is 88, blood pressure 116/ 59, respirations 16-24 depending on her exertion. She is 96% on 3 L. She was using her CPAP mask overnight because her brother brought it in. GENERAL: She is a super obese, alert, white female. When sitting in bed quietly , she is fine, but if you ask her to roll over or she starts talking for greater than 3-5 minutes, she starts to have increased respiratory effort and pursed lip breathing. NECK: Her neck is too big for us to assess for JVD, but I palpate no goiter and hear no bruits. LUNGS: Lungs have coarse upper airway sounds, with increased respiratory effort with talking, but are essentially clear of crackles, rhonchi or wheezing. HEART: PMI is not palpable. Distant cardiac tones. She should have a right ventricular lift, but again, the chest wall is so big I cannot feel it. ABDOMEN: The abdomen is super obese, huge pannus with normal bowel sounds audible. Not able to assess organomegaly. SKIN: The skin of all her intertriginous folds has been quite caked with dried matter and Loraine. She probably has not had a bath in 2 or 3 weeks. A bath was given to her before discharge and much of the loraine has improved, and she is now getting nystatin powder. She is still able get on a bedpan for urination and defecation. The venous stasis changes of her legs are starting to improve in that the legs are starting to shrink in size, and she is starting to get quite a few wrinkles, but she has hardened, indurated, grayish-red skin. The right lower extremity has an eschar that is irregular in shape. Sign out was given to Dr. Lucas. Greater than 30 minutes was spent. JOB #: [id number] EXT JOB #:[id number]
== END 2016-05-16 11:25 ==
LOC: EDUNIT# → ED 18:44 → MS 05-15 02:09
PROVIDERS: ADMIT Specialist; ATTEND Specialist
DX: R53.1 Weakness (principal); E11.65 Type 2 diabetes mellitus with hyperglycemia; E11.42 Type 2 diabetes mellitus with diabetic polyneuropathy; Z79.4 Long term (current) use of insulin; I48.2 Chronic atrial fibrillation; I12.9 Hypertensive chronic kidney disease with stage 1 through stage 4 chronic kidney disease, or unspecified chronic kidney disease; E11.22 Type 2 diabetes mellitus with diabetic chronic kidney disease; N18.3 Chronic kidney disease, stage 3 (moderate); I27.2 Other secondary pulmonary hypertension; S81.802A Unspecified open wound, left lower leg, initial encounter; G47.33 Obstructive sleep apnea (adult) (pediatric); E66.01 Morbid (severe) obesity due to excess calories; Z68.42 Body mass index [BMI] 45.0-49.9, adult; D64.9 Anemia, unspecified; R31.9 Hematuria, unspecified; I87.2 Venous insufficiency (chronic) (peripheral); E78.5 Hyperlipidemia, unspecified; Z79.82 Long term (current) use of aspirin; Z99.81 Dependence on supplemental oxygen; B35.1 Tinea unguium; B35.3 Tinea pedis; Z91.14 Patient's other noncompliance with medication regimen; B37.2 Candidiasis of skin and nail; I51.7 Cardiomegaly
CPT/HCPCS: 29581; 36415; 51701; 70450; 71020; 80048; 80053; 81001; 82550; 82553; 82607; 82728; 82803; 83036; 83540; 83605; 83615; 83880; 84443; 84466; 84484; 85025; 85044; 87070; 87077; 87086; 87181; 87205; 93005; 93010; 93306; 96361; 96372; 96374; 96375; 96376; 97161; 97530; 99285; A9270; G0378; G8978; G8979; J1815; 81003

== ENCOUNTER 2016-07-26 19:51 | Outpatient (CLI) | payer MEDICARE, OTHER | END 2016-07-26 23:59 | disposition critical access hospital (66) | LOC: EMS 19:51 | PROVIDERS: ATTEND Surgery | DX: R53.1 Weakness (principal) | CPT/HCPCS: A0425; A0429 ==

== ENCOUNTER 2016-07-26 20:08 | Emergency (ER) | payer MEDICARE, OTHER ==
--- NOTE | 2016-07-26 20:47 | ED Physician Documentation ---
PD HPI FOCAL NEURO - Stated complaint Stated Complaint: TIA - Chief complaint Chief Complaint: Critical Care - History obtained from History obtained from: Patient - History of Present Illness Timing - onset: Enter time (18:45) Timing - details: Abrupt onset Severity of deficit: Mild Weakness: Other (bilateral lower extremities, R>L; facial droop) Associated symptoms: No: Headache, Nausea / vomiting, Chest pain Baseline status: positive: A&OX3, ambulatory, indep, Walker Recently seen: Not recently seen - Additional information Additional information: patient was recently [facility] a jail. At 6:45 PM tonight, while at rest at home, she experienced generalized weakness, mostly in both lower extremities, right more than left. she called 911 and noted that her speech was mildly slurred. Medics noted mild facial droop. Her symptoms have all completely resolved by the time of this evaluation. Review of Systems Constitutional: reports: Reviewed and negative Eyes: reports: Reviewed and negative Ears: reports: Reviewed and negative Cardiac: reports: Reviewed and negative Respiratory: reports: Reviewed and negative GI: reports: Reviewed and negative : denies: Dysuria, Frequency Musculoskeletal: reports: Reviewed and negative Neurologic: reports: Generalized weakness, Difficulty speaking. denies: Confused, Altered mental status, Headache PD PAST MEDICAL HISTORY - Past Medical History Past Medical History: Yes Cardiovascular: Hypertension, High cholesterol, Deep vein thrombosis Respiratory: COPD, Sleep apnea, CPAP use Neuro: Peripheral neuropathy Endocrine/Autoimmune: Type 2 diabetes GI: None : Incontinence HEENT: None Musculoskeletal: Chronic back pain Derm: Psoriasis - Past Surgical History Past Surgical History: Yes HEENT: Tonsil/Adenoidectomy - Present Medications Home Medications: Ambulatory Orders Medication Instructions Recorded Confirmed Aspirin [Barbara Chewable Aspirin] 81 mg PO DAILY 02/14/14 05/15/16 Cholecalciferol (Vitamin D3) 2,000 unit PO DAILY 02/14/14 05/14/16 [Vitamin D3] Furosemide 40 mg PO DAILY 02/14/14 05/14/16 Insulin Glargine [Lantus Solostar] 100 units SQ QPM 02/14/14 05/15/16 Lovastatin 40 mg PO QPM 02/14/14 05/15/16 Metoprolol Tartrate 50 mg PO BID 02/14/14 05/15/16 Gabapentin [Neurontin] 600 mg PO TID 05/15/16 05/15/16 Glyburide 5 mg PO BIDWM 05/15/16 05/15/16 Insulin Glargine,Hum.rec.anlog 20 unit SUBQ QDBREAKFAST 05/15/16 05/15/16 [Lantus Solostar] Levothyroxine [Synthroid] 25 mcg PO QDAC 05/15/16 05/15/16 - Allergies Allergies/Adverse Reactions: Allergies Allergy/AdvReac Type Severity Reaction Status Date / Time enalapril Allergy Unknown Verified 07/26/16 20:23 verapamil Allergy Unknown Verified 07/26/16 20:23 - Social History Does the pt smoke?: No Smoking Status: Never smoker Does the pt drink ETOH?: No Does the pt have substance abuse?: No - Immunizations Immunizations are current?: No - POLST Patient has POLST: Yes PD ED PE NORMAL - Vitals Vital signs reviewed: Yes - General General: Alert and oriented X 3, No acute distress, Well developed/nourished - HEENT HEENT: PERRL, EOMI, Moist mucous membranes - Neck Neck: Supple, no meningeal sign - Cardiac Cardiac: RRR, No murmur, No gallop, No rub - Respiratory Respiratory: No respiratory distress, Clear bilaterally - Abdomen Abdomen: Soft, Non tender - Extremities Extremities: No edema - Neuro Neuro: Alert and oriented X 3, 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, No motor deficit, No sensory deficit, Normal speech GCS Score: 15 NIHSS - Level of Consciousness Level of consciousness: (0) Alert, Keenly responsive LOC Questions: (0) Answers both Q's correct LOC Commands: (0) Performs both correctly - Gaze Best Gaze: (0) Normal - Visual Visual: (0) No loss - Facial Palsy Facial Palsy: (0) Normal, symmetrical movement - Motor Arms (both separate) Motor Arm (right): (0) No drift Motor Arm (left): (0) No drift - Motor Legs (both separate) Motor Leg (right): (0) No drift Motor Leg (left): (0) No drift - Limb Ataxia Limb Ataxia: (0) Absent - Sensory Sensory: (0) Normal - Best Language Best Language: (0) No aphasia - Dysarthria Dysarthria: (0) Normal - Extinction and Inattention (formally neg Extinction and inattention: (0) No abnormality - Total Score/Results Total Score/Result: 0 Results - Vitals Vitals: Oxygen O2 Source Nasal cannula - EKG (time done) No standard instances Rate: Rate (enter#) (62) Rhythm: NSR [place]: Normal Intervals: Normal [place] QRS: Normal Ischemia: Normal ST segments - Labs Labs: Laboratory Tests 07/26/16 07/26/16 07/26/16 21:30 21:30 21:30 WBC 8.4 RBC 3.35 L Hgb 8.9 L Hct 28.6 L MCV 85.3 MCH 26.5 L MCHC 31.1 L RDW 21.8 H Plt Count 325 MPV 5.8 L Neut # 6.0 Lymph # 1.3 L [place] # 0.4 Eos # 0.6 Baso # 0.1 Absolute Nucleated RBC 0.00 Nucleated RBCs 0.0 WBC Morphology NORMAL APPEARANCE Platelet Estimate NORMAL (130-450,000) Platelet Morphology NORMAL APPEARANCE RBC Morph Micro Appear 1+ TEARDROP CELLS Sodium 135 Potassium 3.8 Chloride 96 L Carbon Dioxide 29 Anion Gap 10.0 BUN 26 H Creatinine 1.6 H Estimated GFR (MDRD) 32 L Glucose 361 H Calcium 8.5 Troponin I < 0.04 - Rads (name of study) chest xray Radiology: Prelim report reviewed, See rad report CT head Radiology: Prelim report reviewed, See rad report PD MEDICAL DECISION MAKING - ED course Complexity details: reviewed results, re-evaluated patient, considered differential, d/w patient Departure - Departure Disposition: 01 Home, Self Care Clinical Impression: TIA (transient ischemic attack) Qualifiers: Transient cerebral ischemia type: unspecified Qualified Code(s): G45.9 - Transient cerebral ischemic attack, unspecified Condition: Good Instructions: ED Transient Ischemic Attack Discharge Date/Time: 07/27/16 01:19
[2016-07-26 21:49] LABS: CALCIUM 8.5 mg/dL (8.5-10.3); CREATININE 1.6 mg/dL (0.4-1.0); POTASSIUM 3.8 mmol/L (3.5-5.0)
[2016-07-26 22:06] LABS: BASOPHILS # (AUTO) 0.1 10^3/uL (0.0-0.1); BASOPHILS % (AUTO) 0.9 %; EOSINOPHILS # (AUTO) 0.6 10^3/uL (0.0-0.7); EOSINOPHILS % (AUTO) 7.2 %; HCT - HEMATOCRIT 28.6 % (37.0-47.0); HGB - HEMOGLOBIN 8.9 g/dL (12.0-16.0); LYMPHOCYTES # (AUTO) 1.3 10^3/uL (1.5-3.5); LYMPHOCYTES % (AUTO) 15.5 %; MEAN CORPUSCULAR HEMOGLOBIN 26.5 pg (27.0-31.0); MEAN CORPUSCULAR HGB CONC 31.1 g/dL (32.0-36.0); MEAN CORPUSCULAR VOLUME 85.3 fL (81.0-99.0); MEAN PLATELET VOLUME 5.8 fL (7.9-10.8); MONOCYTES # (AUTO) 0.4 10^3/uL (0.0-1.0); MONOCYTES % (AUTO) 5.3 %; NEUTROPHILS % (AUTO) 71.1 %; PLATELET ESTIMATE, MANUAL NORMAL (130-450,000) (NORMAL); PLATELET MORPHOLOGY NORMAL APPEARANCE (NORMAL); RED BLOOD COUNT 3.35 10^6/uL (4.20-5.40); RED CELL DISTRIBUTION WIDTH 21.8 % (12.0-15.0); UNCORRECTED WHITE BLOOD COUNT 8.4 x10^3/uL; WHITE BLOOD COUNT 8.4 x10^3/uL (4.8-10.8)
[2016-07-26 22:07] LABS: WBC MORPHOLOGY (MULTIPLE) NORMAL APPEARANCE (NORMAL)
--- NOTE | 2016-07-26 22:21 | XRAY Preliminary Report ---
Exam: XR Chest 2 View PA/LAT IMPRESSION: Stable cardiomegaly and clear hypoinflated lungs. [facility] SITE ID: [id number]
--- NOTE | 2016-07-26 22:23 | XRAY Report ---
EXAM: CHEST RADIOGRAPHY EXAM DATE: 07/26/2016 10:02 PM. CLINICAL HISTORY: CVA/TIA. COMPARISON: 05/14/2016. TECHNIQUE: 2 views. FINDINGS: Lungs/Pleura: No focal opacities evident. No pleural effusion. No pneumothorax. Hypoinflated lungs. Mediastinum: Large heart. Other: No compression fractures.. IMPRESSION: Stable cardiomegaly and clear hypoinflated lungs. [facility] Referring Provider Line: [phone] SITE ID: [id number]
--- NOTE | 2016-07-26 22:32 | CT Preliminary Report ---
Exam: CT Head W/O IMPRESSION: No acute or focal intracranial abnormality. [facility] SITE ID: [id number]
--- NOTE | 2016-07-26 22:34 | CT Report ---
EXAM: CT HEAD EXAM DATE: 07/26/2016 10:14 PM. CLINICAL HISTORY: Weakness, facial droop. Slurred speech COMPARISON: None. TECHNIQUE: Multiaxial CT images were obtained from the foramen magnum to the vertex. IV contrast: Non e. Reformats: Coronal. In accordance with CT protocol optimization, one or more of the following dose reduction techniques w ere utilized for this exam: automated exposure control, adjustment of mA and/or KV based on patient s ize, or use of iterative reconstructive technique. FINDINGS: Parenchyma: No intraparenchymal hemorrhage. No evidence of mass, midline shift, or CT findings of inf arction. Castro-white differentiation is distinct. Extraaxial Spaces: Normal for age. No subdural or epidural collections identified. Ventricles: Normal in size and position. Sinuses: Imaged paranasal sinuses, orbits, and mastoids show no significant abnormality. Bones: No evidence of fracture or calvarial defect. Other: Nonspecific white matter hypodensity, likely small vessel ischemia, unchanged IMPRESSION: No acute or focal intracranial abnormality. [facility] Referring Provider Line: [phone] SITE ID: [id number]
[2016-07-26] MEDS ORDERED: INSULIN REGULAR HUMAN 100 UNIT/1 ML 10 ML MDV IVP STA (23:35)
[2016-07-26] MEDS ORDERED: INSULIN REGULAR HUMAN 100 UNIT/1 ML 10 ML MDV ONE (23:53)
[2016-07-27 01:20] VITALS: BP 110/74
== END 2016-07-27 01:19 | disposition home or self-care (01) ==
LOC: ED 20:08
DX: G45.9 Transient cerebral ischemic attack, unspecified (principal); I10 Essential (primary) hypertension; E11.42 Type 2 diabetes mellitus with diabetic polyneuropathy; Z79.4 Long term (current) use of insulin; Z86.718 Personal history of other venous thrombosis and embolism; Z79.82 Long term (current) use of aspirin
CPT/HCPCS: 36415; 70450; 71020; 80048; 84484; 85025; 93005; 93010; 99284; 99285; J1815

== ENCOUNTER 2016-09-12 12:03 | Emergency (ER) | payer MEDICARE, OTHER ==
[2016-09-12] MEDS ORDERED: cefTRIAXone 1 GM VIAL IM STA (15:44)
[2016-09-12] MEDS ORDERED: CLINDAMYCIN 150 MG CAPSULE PO STA (15:45)
--- NOTE | 2016-09-12 15:48 | ED Physician Documentation ---
History of Present Illness - Stated complaint Stated Complaint: RIGHT FOOT WOUND - Chief complaint Chief Complaint: Ext Problem - History obtained from History obtained from: Patient - History of Present Illness Timing: How many weeks ago (several) Pain level max: 0 Pain level now: 0 Improved by: nothing Worsened by: nothing - Additonal information Additional information: Patient is a 71-year-old diabetic female who presents to the emergency department with a right foot diabetic foot ulcer. She states that she was told by her physician's office today, to come to the emergency department to be evaluated. Her doctor is currently on vacation. She is being followed by wound care at the [facility] [place]. No fevers. Review of Systems Ten Systems: 10 systems reviewed and negative Constitutional: denies: Fever, Chills Nose: denies: Rhinorrhea / runny nose, Congestion Throat: denies: Sore throat Respiratory: denies: Cough GI: denies: Abdominal Pain, Nausea, Vomiting, Diarrhea Skin: denies: Rash Musculoskeletal: denies: Neck pain, Back pain Neurologic: denies: Headache PD PAST MEDICAL HISTORY - Past Medical History Cardiovascular: Hypertension, High cholesterol, Deep vein thrombosis Respiratory: COPD, Sleep apnea, CPAP use Neuro: Peripheral neuropathy Endocrine/Autoimmune: Type 2 diabetes GI: None : Incontinence HEENT: None Musculoskeletal: Chronic back pain Derm: Psoriasis - Past Surgical History Past Surgical History: Yes HEENT: Tonsil/Adenoidectomy - Present Medications Home Medications: Ambulatory Orders Medication Instructions Recorded Confirmed Furosemide 40 mg PO DAILY 02/14/14 09/12/16 Insulin Glargine [Lantus Solostar] 73 units SQ DAILY PM 02/14/14 09/12/16 Lovastatin 40 mg PO QPM 02/14/14 09/12/16 Metoprolol Tartrate 50 mg PO BID 02/14/14 09/12/16 Gabapentin [Neurontin] 100 mg PO Q8H 05/15/16 09/12/16 Levothyroxine [Synthroid] 25 mcg PO DAILY 05/15/16 09/12/16 Acetaminophen 1 - 2 tab PO Q4H PRN 09/10/16 09/12/16 Albuterol 1.5 ml NEB BID 09/10/16 09/12/16 Cholecalciferol (Vitamin D3) 2,000 units PO DAILY 09/10/16 09/12/16 [Vitamin D3] Diltiazem HCl [Diltiazem ER] 120 mg PO DAILY 09/10/16 09/12/16 Ferrous Sulfate 325 mg PO DAILY 09/10/16 09/12/16 Furosemide 3 tab PO DAILY 09/10/16 09/12/16 Glipizide 5 mg PO BID 09/10/16 09/12/16 Insulin Aspart [Novolog Flexpen] 15 units SQ AC 09/10/16 09/12/16 Insulin Glargine [Lantus Solostar] 88 units SQ DAILY PM 09/10/16 09/12/16 LORazepam [Ativan] 0.5 mg PO DAILY PM 09/10/16 09/12/16 Lisinopril 5 mg PO DAILY 09/10/16 09/12/16 Pen Needle, Diabetic [Unifine 1 ea SQ DAILY 09/10/16 09/12/16 Pentips] Cephalexin [Keflex] 500 mg PO Q6H #40 capsule 09/12/16 Clindamycin HCl 300 mg PO Q6H #40 capsule 09/12/16 - Allergies Allergies/Adverse Reactions: Allergies Allergy/AdvReac Type Severity Reaction Status Date / Time enalapril Allergy Unknown Verified 09/12/16 12:16 verapamil Allergy Unknown Verified 09/12/16 12:16 - Social History Does the pt smoke?: No Smoking Status: Former smoker Does the pt drink ETOH?: No Does the pt have substance abuse?: No - Immunizations Immunizations are current?: No - POLST Patient has POLST: Yes PD ED PE NORMAL - Vitals Vital signs reviewed: Yes - General General: Alert and oriented X 3, No acute distress - Neck Neck: Supple, no meningeal sign - Cardiac Cardiac: RRR - Respiratory Respiratory: No respiratory distress, Clear bilaterally - Abdomen Abdomen: Soft, Non tender, Non distended - Derm Derm: Warm and dry - Extremities Extremities: Other (R foot, sole 3cm round partial thickness ulcer and posterior R lower leg 2cm partial thickness ulcer. no drainage. NVI) - Neuro Neuro: Alert and oriented X 3 - Psych Psych: Normal mood, Normal affect Results - Vitals Vitals: Vital Signs - 24 hr 09/12/16 09/12/16 09/12/16 12:08 14:28 16:10 Temperature 36.1 C L 36.3 C L 36.4 C L Heart Rate 66 62 66 Respiratory 18 20 22 Rate Blood Pressure 125/65 130/78 O2 Saturation 86 L 100 100 Oxygen O2 Source Room air PD MEDICAL DECISION MAKING - ED course Complexity details: reviewed results, re-evaluated patient, considered differential, d/w patient ED course: Patient is a 71-year-old female with a diabetic foot ulcer. She had a wound culture performed by wound care a few days ago and returned with Proteus and staph aureus. Will place on antibiotics for this. She is well-appearing, nontoxic. Afebrile. No drainage. Will have her follow-up with her doctor and wound care as scheduled. Patient counseled regarding signs and symptoms for which I believe and urgent re-evaluation would be necessary. Patient with good understanding of and agreement to plan and is comfortable going home at this time This document was made in part using voice recognition software. While efforts are made to proofread this document, sound alike and grammatical errors may occur. Departure - Departure Disposition: 01 Home, Self Care Clinical Impression: Diabetic foot ulcer Qualifiers: Diabetic foot ulcer location: midfoot Diabetes mellitus type: type 2 Laterality : left Non-pressure ulcer stage: limited to breakdown of skin Qualified Code(s) : E11.621 - Type 2 diabetes mellitus with foot ulcer Condition: Good Instructions: ED Foot Care Diabetic Follow-Up: Alexandra Steinberg MD [Primary Care Provider] - Within 3 Days Prescriptions: Clindamycin HCl 300 mg PO Q6H #40 capsule Cephalexin [Keflex] 500 mg PO Q6H #40 capsule Comments: Take all antibiotics until gone. Return if you worsen. Discharge Date/Time: 09/12/16 16:11
[2016-09-12] MEDS ORDERED: SODIUM CHLORIDE FLUSH 0.9% 10 ML SYRINGE IVP ONE (15:56)
[2016-09-12] MEDS ORDERED: cefTRIAXone 1 GM VIAL ONE (15:56)
[2016-09-12] MEDS ORDERED: CLINDAMYCIN 150 MG CAPSULE PO ONE (15:56)
[2016-09-12 16:12] VITALS: BP 130/78
== END 2016-09-12 16:11 | disposition home or self-care (01) ==
LOC: ED 12:03
DX: E11.621 Type 2 diabetes mellitus with foot ulcer (principal); L97.519 Non-pressure chronic ulcer of other part of right foot with unspecified severity; E11.42 Type 2 diabetes mellitus with diabetic polyneuropathy; I10 Essential (primary) hypertension; E78.00 Pure hypercholesterolemia, unspecified; Z79.4 Long term (current) use of insulin; Z86.718 Personal history of other venous thrombosis and embolism; Z87.891 Personal history of nicotine dependence
CPT/HCPCS: 96372; 99283; A9270

== ENCOUNTER 2016-10-15 00:53 | Outpatient (CLI) | payer MEDICARE, OTHER | END 2016-10-15 00:54 | disposition EMS.NT | LOC: EMS 00:53 | PROVIDERS: ATTEND Surgery | DX: Z03.89 Encounter for observation for other suspected diseases and conditions ruled out (principal); W05.0XXA Fall from non-moving wheelchair, initial encounter; Y92.009 Unspecified place in unspecified non-institutional (private) residence as the place of occurrence of the external cause ==

== ENCOUNTER 2017-02-18 15:42 | Outpatient (CLI) | payer MEDICARE, OTHER | END 2017-02-18 15:43 | disposition critical access hospital (66) | LOC: EMS 15:42 | PROVIDERS: ATTEND Surgery | DX: R53.1 Weakness (principal); R19.7 Diarrhea, unspecified | CPT/HCPCS: A0425; A0429 ==

== ENCOUNTER 2017-02-18 15:52 | Emergency (ER) | payer MEDICARE, OTHER ==
[2017-02-18] MEDS ORDERED: SODIUM CHLORIDE 0.9% 1,000 ML IV ONE ×3 (16:13→17:11)
[2017-02-18 16:26] LABS: BASOPHILS # (AUTO) 0.1 10^3/uL (0.0-0.1); BASOPHILS % (AUTO) 0.6 %; EOSINOPHILS # (AUTO) 0.1 10^3/uL (0.0-0.7); EOSINOPHILS % (AUTO) 0.7 %; HGB - HEMOGLOBIN 12.3 g/dL (12.0-16.0); LYMPHOCYTES # (AUTO) 1.3 10^3/uL (1.5-3.5); LYMPHOCYTES % (AUTO) 14.9 %; MEAN CORPUSCULAR HEMOGLOBIN 27.1 pg (27.0-31.0); MEAN CORPUSCULAR HGB CONC 32.1 g/dL (32.0-36.0); MEAN CORPUSCULAR VOLUME 84.4 fL (81.0-99.0); MEAN PLATELET VOLUME 6.7 fL (7.9-10.8); MONOCYTES # (AUTO) 0.6 10^3/uL (0.0-1.0); NEUTROPHILS # (AUTO) 6.5 10^3/uL (1.5-6.6); NEUTROPHILS % (AUTO) 76.8 %; PLT - PLATELET COUNT 295 10^3/uL (130-450); RED BLOOD COUNT 4.53 10^6/uL (4.20-5.40); RED CELL DISTRIBUTION WIDTH 15.9 % (12.0-15.0); WHITE BLOOD COUNT 8.5 x10^3/uL (4.8-10.8)
[2017-02-18 16:48] LABS: ALBUMIN 3.2 g/dL (3.2-5.5); ALBUMIN/GLOBULIN RATIO 0.7 (1.0-2.2); ALKALINE PHOSPHATASE 107 IU/L (42-121); ALT ALANINE AMINOTRANSFERASE < 10 IU/L (10-60); AST ASPARTATE AMINOTRANSFERASE 14 IU/L (10-42); BILIRUBIN,TOTAL 0.4 mg/dL (0.2-1.0); BUN - BLOOD UREA NITROGEN 43 mg/dL (6-20); CALCIUM 9.1 mg/dL (8.5-10.3); CARBON DIOXIDE - CO2 24 mmol/L (21-32); CHLORIDE 94 mmol/L (101-111); CREATININE 1.7 mg/dL (0.4-1.0); GFR - MDRD 29 (>89); GLUCOSE 233 mg/dL (70-100); LIPASE 35 U/L (22-51); SODIUM 135 mmol/L (135-145)
--- NOTE | 2017-02-18 17:14 | ED Physician Documentation ---
History of Present Illness - Stated complaint Stated Complaint: WEAKNESS - Chief complaint Chief Complaint: Neuro - History obtained from History obtained from: Patient, EMS - History of Present Illness Timing: How many days ago (several) Pain level max: 3 Pain level now: 3 Improved by: rest Worsened by: walking - Additonal information Additional information: Patient is a 71-year-old female who lives at home who is being treated for wounds on her feet, the wound care nurse came to see her this morning and she was found to be having diarrhea for the past few days as well as some emesis. Patient has been feeling very weak. Unable to eat and drink much at home. Has been on Keflex recently for her wounds. No fevers. No abdominal pain. States the diarrhea is decreasing. Review of Systems Constitutional: denies: Fever, Chills Nose: denies: Rhinorrhea / runny nose, Congestion Throat: denies: Sore throat Cardiac: denies: Chest pain / pressure Respiratory: denies: Cough, Wheezing GI: reports: Diarrhea. denies: Abdominal Pain, Nausea, Vomiting Skin: denies: Rash Musculoskeletal: denies: Back pain Neurologic: denies: Headache PD PAST MEDICAL HISTORY - Past Medical History Past Medical History: Yes Cardiovascular: Hypertension, High cholesterol, Deep vein thrombosis Respiratory: COPD, Sleep apnea, CPAP use Neuro: Peripheral neuropathy Endocrine/Autoimmune: Type 2 diabetes GI: None : Incontinence HEENT: None Musculoskeletal: Chronic back pain Derm: Psoriasis - Past Surgical History Past Surgical History: Yes HEENT: Tonsil/Adenoidectomy - Present Medications Home Medications: Ambulatory Orders Medication Instructions Recorded Confirmed Furosemide 40 mg PO DAILY 02/14/14 01/17/17 Insulin Glargine [Lantus Solostar] 73 units SQ DAILY PM 02/14/14 01/17/17 Lovastatin 40 mg PO QPM 02/14/14 01/17/17 Metoprolol Tartrate 50 mg PO BID 02/14/14 01/17/17 Gabapentin [Neurontin] 100 mg PO Q8H 05/15/16 01/17/17 Levothyroxine [Synthroid] 25 mcg PO DAILY 05/15/16 01/17/17 Acetaminophen 1 - 2 tab PO Q4H PRN 09/10/16 01/17/17 Albuterol 1.5 ml NEB BID 09/10/16 01/17/17 Cholecalciferol (Vitamin D3) 2,000 units PO DAILY 09/10/16 01/17/17 [Vitamin D3] Diltiazem HCl [Diltiazem ER] 120 mg PO DAILY 09/10/16 01/17/17 Ferrous Sulfate 325 mg PO DAILY 09/10/16 01/17/17 Furosemide 3 tab PO DAILY 09/10/16 01/17/17 Glipizide 5 mg PO BID 09/10/16 01/17/17 Insulin Aspart [Novolog Flexpen] 15 units SQ AC 09/10/16 01/17/17 Insulin Glargine [Lantus Solostar] 88 units SQ DAILY PM 09/10/16 01/17/17 LORazepam [Ativan] 0.5 mg PO DAILY PM 09/10/16 01/17/17 Lisinopril 5 mg PO DAILY 09/10/16 01/17/17 Pen Needle, Diabetic [Unifine 1 ea SQ DAILY 09/10/16 01/17/17 Pentips] Cephalexin [Keflex] 500 mg PO Q6H #40 capsule 09/12/16 01/17/17 Clindamycin HCl [Clindamycin 300MG 300 mg PO Q6H #40 capsule 09/12/16 01/17/17 CAP] Cephalexin [Keflex] 500 mg PO Q6H #28 capsule 02/18/17 - Allergies Allergies/Adverse Reactions: Allergies Allergy/AdvReac Type Severity Reaction Status Date / Time enalapril Allergy Unknown Verified 09/12/16 12:16 verapamil Allergy Unknown Verified 09/12/16 12:16 - Social History Does the pt smoke?: No Smoking Status: Never smoker Does the pt drink ETOH?: No Does the pt have substance abuse?: No - Immunizations Immunizations are current?: No - POLST Patient has POLST: Yes PD ED PE NORMAL - Vitals Vital signs reviewed: Yes - General General: Alert and oriented X 3, No acute distress - HEENT HEENT: Moist mucous membranes - Neck Neck: Supple, no meningeal sign - Cardiac Cardiac: RRR - Respiratory Respiratory: No respiratory distress, Clear bilaterally - Abdomen Abdomen: Soft, Non tender, Non distended - Derm Derm: Warm and dry - Neuro Neuro: Alert and oriented X 3 - Psych Psych: Normal mood, Normal affect Results - Vitals Vitals: Vital Signs - 24 hr 02/18/17 02/18/17 02/18/17 15:57 18:42 18:52 Temperature 36.2 C L Heart Rate 72 70 66 Respiratory 16 18 18 Rate Blood Pressure 170/88 H 220/198 H 130/65 O2 Saturation 92 92 94 02/18/17 19:40 Temperature 36.8 C Heart Rate 84 Respiratory 22 Rate Blood Pressure 133/67 H O2 Saturation 94 Oxygen O2 Source Nasal cannula - EKG (time done) 1608 Rate: Rate (enter#) (72) Rhythm: NSR [place]: Normal Intervals: Normal [place] QRS: Normal Ischemia: Non specific changes - Labs Labs: Laboratory Tests 02/18/17 02/18/17 02/18/17 16:14 16:14 18:47 WBC 8.5 RBC 4.53 Hgb 12.3 Hct 38.3 MCV 84.4 MCH 27.1 MCHC 32.1 RDW 15.9 H Plt Count 295 MPV 6.7 L Neut # 6.5 Lymph # 1.3 L [place] # 0.6 Eos # 0.1 Baso # 0.1 Absolute Nucleated RBC 0.01 Nucleated RBC % 0.1 Sodium 135 Potassium 3.5 Chloride 94 L Carbon Dioxide 24 Anion Gap 17.0 H BUN 43 H Creatinine 1.7 H Estimated GFR (MDRD) 29 L Glucose 233 H Calcium 9.1 Total Bilirubin 0.4 AST 14 ALT < 10 L Alkaline Phosphatase 107 Total Protein 8.0 Albumin 3.2 Globulin 4.8 H Albumin/Globulin Ratio 0.7 L Lipase 35 Urine Color YELLOW Urine Clarity HAZY Urine pH 6.0 Ur Specific [place] 1.025 Urine Protein 100 H Urine Glucose (UA) NEGATIVE Urine Ketones NEGATIVE Urine Occult Blood LARGE H Urine Nitrite NEGATIVE Urine Bilirubin NEGATIVE Urine Urobilinogen 0.2 (NORMAL) Ur Leukocyte Esterase SMALL H Urine RBC TNTC H Urine WBC 6-10 H Ur Squamous Epith Cells MANY Squamous H Urine Bacteria Many H Ur Microscopic Review INDICATED Urine Culture Comments NOT INDICATED PD MEDICAL DECISION MAKING - ED course Complexity details: reviewed results, re-evaluated patient, considered differential, d/w patient ED course: Patient is a 71-year-old female who presents to the emergency department with diarrhea and decreased appetite for the past several days. Feels significantly better after IV fluids. No diarrhea here. Unable to obtain a sample, but C. difficile felt to be unlikely given that she has not had diarrhea for over 4 hours in the department and had not had any for approximately 6 hours before that. She also states the diarrhea was improving. Does appear to have a UTI and will place her on antibiotics for this. Tolerating p.o. without difficulty and ambulating well in the emergency department. We will have her follow-up with her doctor for further evaluation and care. Patient counseled regarding signs and symptoms for which I believe and urgent re-evaluation would be necessary. Patient with good understanding of and agreement to plan and is comfortable going home at this time This document was made in part using voice recognition software. While efforts are made to proofread this document, sound alike and grammatical errors may occur. Departure - Departure Disposition: Home, Self Care Clinical Impression: Dehydration UTI (urinary tract infection) Qualifiers: Urinary tract infection type: acute cystitis Hematuria presence: without hematuria Qualified Code(s): N30.00 - Acute cystitis without hematuria Diarrhea Qualifiers: Diarrhea type: unspecified type Qualified Code(s): R19.7 - Diarrhea, unspecified Condition: Good Instructions: ED Dehydration, ED Diarrhea Viral, ED UTI Cystitis Female Follow-Up: Alexandra Steinberg MD [Primary Care Provider] - Within 1 week Prescriptions: Cephalexin [Keflex] 500 mg PO Q6H #28 capsule Comments: Drink plenty of fluids. Return if you worsen. take all antibiotics until gone. Discharge Date/Time: 02/18/17 19:57
[2017-02-18 18:56] LABS: BILIRUBIN,URINE NEGATIVE (NEGATIVE); GLUCOSE, URINE (UA) NEGATIVE (NEGATIVE); KETONES,URINE (UA) NEGATIVE (NEGATIVE); LEUKOCYTE ESTERASE, URINE SMALL (NEGATIVE); NITRITE,URINE NEGATIVE (NEGATIVE); OCCULT BLOOD,URINE LARGE (NEGATIVE); PROTEIN,URINE 100 mg/dL (NEGATIVE); UROBILINOGEN,URINE 0.2 (NORMAL) E.U./dL (NORMAL)
[2017-02-18 19:16] LABS: CLARITY,URINE HAZY (CLEAR)
[2017-02-18 19:17] LABS: BACTERIA,URINE Many /HPF (None Seen); RBC,URINE TNTC /HPF (0-5); SQUAMOUS EPITHELIAL CELL,UR MANY Squamous (<= Few)
[2017-02-18] MEDS ORDERED: cephALEXin 250 MG CAPSULE PO STA (19:27)
[2017-02-18 19:42] VITALS: BP 133/67
== END 2017-02-18 19:57 | disposition home or self-care (01) ==
LOC: EDUNIT# → ED 15:52
DX: E86.0 Dehydration (principal); N30.00 Acute cystitis without hematuria; R19.7 Diarrhea, unspecified; I45.81 Long QT syndrome; I10 Essential (primary) hypertension; E78.00 Pure hypercholesterolemia, unspecified; E11.42 Type 2 diabetes mellitus with diabetic polyneuropathy; Z79.4 Long term (current) use of insulin; Z86.718 Personal history of other venous thrombosis and embolism
CPT/HCPCS: 36415; 80053; 81001; 83690; 85025; 93005; 96360; 96361; 99283; 99284; A9270; 81003; 87086

== ENCOUNTER 2017-04-29 11:33 | Outpatient (CLI) | payer MEDICARE, OTHER | END 2017-04-29 11:34 | disposition critical access hospital (66) | LOC: EMS 11:33 | PROVIDERS: ATTEND Surgery | DX: R04.0 Epistaxis (principal) | CPT/HCPCS: A0425; A0429 ==

== ENCOUNTER 2017-04-29 11:46 | Emergency (ER) | payer MEDICARE, OTHER ==
[2017-04-29] MEDS ORDERED: LIDOCAINE-EPINEPH-TETRACAINE 3 ML SYRINGE TOP STA (12:18)
[2017-04-29] MEDS ORDERED: OXYMETAZOLINE NASAL SPRAY NAS STA (12:27)
[2017-04-29] MEDS ORDERED: LIDOCAINE-EPINEPH-TETRACAINE 3 ML SYRINGE TOP ONE (12:28)
--- NOTE | 2017-04-29 15:09 | ED Physician Documentation ---
PD HPI HEENT - Stated complaint Stated Complaint: NOSE BLEED - Chief complaint Chief Complaint: Heent - History obtained from History obtained from: Patient - History of Present Illness Timing - onset: Today Timing - duration: Hours Timing - details: Abrupt onset, Still present Location: Nose Improves: Other (clamping) Associated symptoms: Congestion, Cough Similar symptoms before: Diagnosis (nose bleed) Recently seen: Other (is getting regular care for a wound on the bottom of the left foot.) - Additional information Additional information: 71-year-old diabetic female with a history of COPD and sleep apnea has developed a nosebleed this morning and she has not been able to control it even with direct pressure. Review of Systems Constitutional: denies: Fever, Chills Eyes: denies: Decreased vision Ears: denies: Ear pain Nose: reports: Congestion, Epistaxis Throat: denies: Sore throat Cardiac: denies: Chest pain / pressure, Palpitations Respiratory: reports: Cough. denies: Dyspnea GI: denies: Abdominal Pain, Nausea, Vomiting : denies: Dysuria, Frequency Skin: denies: Rash Musculoskeletal: reports: Extremity pain, Extremity swelling. denies: Neck pain , Back pain Neurologic: denies: Generalized weakness, Focal weakness, Numbness PD PAST MEDICAL HISTORY - Past Medical History Cardiovascular: Hypertension, High cholesterol, Deep vein thrombosis Respiratory: COPD, Sleep apnea, CPAP use Neuro: Peripheral neuropathy Endocrine/Autoimmune: Type 2 diabetes GI: None : Incontinence HEENT: None Musculoskeletal: Chronic back pain Derm: Psoriasis - Past Surgical History Past Surgical History: Yes HEENT: Tonsil/Adenoidectomy - Present Medications Home Medications: Ambulatory Orders Medication Instructions Recorded Confirmed Furosemide 40 mg PO DAILY 02/14/14 01/17/17 Insulin Glargine [Lantus Solostar] 73 units SQ DAILY PM 02/14/14 01/17/17 Lovastatin 40 mg PO QPM 02/14/14 01/17/17 Metoprolol Tartrate 50 mg PO BID 02/14/14 01/17/17 Gabapentin [Neurontin] 100 mg PO Q8H 05/15/16 01/17/17 Levothyroxine [Synthroid] 25 mcg PO DAILY 05/15/16 01/17/17 Acetaminophen 1 - 2 tab PO Q4H PRN 09/10/16 01/17/17 Albuterol 1.5 ml NEB BID 09/10/16 01/17/17 Cholecalciferol (Vitamin D3) 2,000 units PO DAILY 09/10/16 01/17/17 [Vitamin D3] Diltiazem HCl [Diltiazem ER] 120 mg PO DAILY 09/10/16 01/17/17 Ferrous Sulfate 325 mg PO DAILY 09/10/16 01/17/17 Furosemide 3 tab PO DAILY 09/10/16 01/17/17 Glipizide 5 mg PO BID 09/10/16 01/17/17 Insulin Aspart [Novolog Flexpen] 15 units SQ AC 09/10/16 01/17/17 Insulin Glargine [Lantus Solostar] 88 units SQ DAILY PM 09/10/16 01/17/17 LORazepam [Ativan] 0.5 mg PO DAILY PM 09/10/16 01/17/17 Lisinopril 5 mg PO DAILY 09/10/16 01/17/17 Pen Needle, Diabetic [Unifine 1 ea SQ DAILY 09/10/16 01/17/17 Pentips] Cephalexin [Keflex] 500 mg PO Q6H #40 capsule 09/12/16 01/17/17 Clindamycin HCl [Clindamycin 300MG 300 mg PO Q6H #40 capsule 09/12/16 01/17/17 CAP] Cephalexin [Keflex] 500 mg PO Q6H #28 capsule 02/18/17 - Allergies Allergies/Adverse Reactions: Allergies Allergy/AdvReac Type Severity Reaction Status Date / Time enalapril Allergy Unknown Verified 04/29/17 12:16 verapamil Allergy Unknown Verified 04/29/17 12:16 - Social History Does the pt smoke?: No Smoking Status: Never smoker Does the pt drink ETOH?: No Does the pt have substance abuse?: No - Immunizations Immunizations are current?: No - POLST Patient has POLST: Yes PD ED PE NORMAL - Vitals Vital signs reviewed: Yes (Hypertensive) - General General: Alert and oriented X 3, No acute distress, Well developed/nourished - HEENT HEENT: Atraumatic, PERRL, EOMI, Other (There is hemotympanum bilaterally and there is epistaxis from both nares and this appears to be primarily from the right nares and leaking out through the left passively.) - Neck Neck: Supple, no meningeal sign, No bony TTP - Respiratory Respiratory: No respiratory distress - Derm Derm: Normal color, Warm and dry, No rash - Extremities Extremities: Other (There is bilateral lower extremity edema and postinflammatory hyperpigmentation to the right lower extremity the left is bandaged well from recent wound care and this is not taken down.) - Neuro Neuro: Alert and oriented X 3, proofreader 2-12 intact, No motor deficit, No sensory deficit, Normal speech Eye Opening: Spontaneous Motor: Obeys Commands Verbal: Oriented GCS Score: 15 - Psych Psych: Normal mood, Normal affect Results - Vitals Vitals: Vital Signs - 24 hr 04/29/17 04/29/17 12:13 13:55 Temperature 37.2 C 36.8 C Heart Rate 68 68 Respiratory 20 15 Rate Blood Pressure 161/68 H 174/62 H O2 Saturation 95 96 Oxygen O2 Source Room air Procedures - Epistaxis Site: Right, Cannot determine Preparation: Clots removed, Afrin, Clamp / pressure applied, Other (let packing applied) Treatment: Ant post rhinorocket, Other (Initially the nose is packed with cotton soaked in let after administration of afrin. This does not resolve the bleeding and the site of bleeding is not appreciated. A 4.5cm rhinorocket is placed and this is dislodged by the patient and did not adequately control the bleeding and a 7.5cm anterior/posterior rhinorocket is placed with success in control of bleeding .) Other: Observed - no bleeding, Pt tolerated well, O2 sat WNL, Referred to ENT PD MEDICAL DECISION MAKING - ED course Complexity details: considered differential, d/w patient ED course: 71-year-old diabetic female on BiPAP has developed a significant nosebleed and this was not controlled by simple measures and required a 7.5 cm nasal rocket. She appears to tolerate this well and will come back to the emergency department for removal of this tomorrow morning. Departure - Departure Disposition: 01 Home, Self Care Clinical Impression: Severe epistaxis Condition: Stable Instructions: ED Nosebleed Follow-Up: Alexandra Steinberg MD [Primary Care Provider] - [facility] [Provider Group] Comments: Leave the Rhino Rocket in place and return to the emergency department tomorrow morning for removal of the Rhino Rocket.
[2017-04-29 15:34] VITALS: BP 169/73
== END 2017-04-29 15:46 | disposition home or self-care (01) ==
LOC: EDUNIT# → ED 11:46 → SUPCPDRO 11:46 → ED 15:46
DX: R04.0 Epistaxis (principal); I10 Essential (primary) hypertension; E11.42 Type 2 diabetes mellitus with diabetic polyneuropathy; Z79.4 Long term (current) use of insulin; J44.9 Chronic obstructive pulmonary disease, unspecified; G47.30 Sleep apnea, unspecified; E78.00 Pure hypercholesterolemia, unspecified; Z86.718 Personal history of other venous thrombosis and embolism
CPT/HCPCS: 30903; 99283; A9270

== ENCOUNTER 2017-04-30 09:01 | Emergency (ER) | payer MEDICARE, OTHER ==
[2017-04-30] MEDS ORDERED: OXYMETAZOLINE NASAL SPRAY NAS STA (09:42)
--- NOTE | 2017-04-30 09:44 | ED Physician Documentation ---
History of Present Illness - Stated complaint Stated Complaint: NOSE BLEED - Chief complaint Chief Complaint: Heent - Additonal information Additional information: hx from pt seen yesterday for posterior R epsitaxis 7.5 rhinrocket used no blood thinners back today for removal minimal bleeding since packing Review of Systems Nose: reports: Epistaxis Endocrine: denies: Easy bruising / bleeding PD PAST MEDICAL HISTORY - Past Medical History Cardiovascular: Hypertension, High cholesterol, Deep vein thrombosis Respiratory: COPD, Sleep apnea, CPAP use Neuro: Peripheral neuropathy Endocrine/Autoimmune: Type 2 diabetes GI: None : Incontinence HEENT: None Musculoskeletal: Chronic back pain Derm: Psoriasis - Past Surgical History Past Surgical History: Yes HEENT: Tonsil/Adenoidectomy - Present Medications Home Medications: Ambulatory Orders Medication Instructions Recorded Confirmed Furosemide 40 mg PO DAILY 02/14/14 01/17/17 Insulin Glargine [Lantus Solostar] 73 units SQ DAILY PM 02/14/14 01/17/17 Lovastatin 40 mg PO QPM 02/14/14 01/17/17 Metoprolol Tartrate 50 mg PO BID 02/14/14 01/17/17 Gabapentin [Neurontin] 100 mg PO Q8H 05/15/16 01/17/17 Levothyroxine [Synthroid] 25 mcg PO DAILY 05/15/16 01/17/17 Acetaminophen 1 - 2 tab PO Q4H PRN 09/10/16 01/17/17 Albuterol 1.5 ml NEB BID 09/10/16 01/17/17 Cholecalciferol (Vitamin D3) 2,000 units PO DAILY 09/10/16 01/17/17 [Vitamin D3] Diltiazem HCl [Diltiazem ER] 120 mg PO DAILY 09/10/16 01/17/17 Ferrous Sulfate 325 mg PO DAILY 09/10/16 01/17/17 Furosemide 3 tab PO DAILY 09/10/16 01/17/17 Glipizide 5 mg PO BID 09/10/16 01/17/17 Insulin Aspart [Novolog Flexpen] 15 units SQ AC 09/10/16 01/17/17 Insulin Glargine [Lantus Solostar] 88 units SQ DAILY PM 09/10/16 01/17/17 LORazepam [Ativan] 0.5 mg PO DAILY PM 09/10/16 01/17/17 Lisinopril 5 mg PO DAILY 09/10/16 01/17/17 Pen Needle, Diabetic [Unifine 1 ea SQ DAILY 09/10/16 01/17/17 Pentips] Cephalexin [Keflex] 500 mg PO Q6H #40 capsule 09/12/16 01/17/17 Clindamycin HCl [Clindamycin 300MG 300 mg PO Q6H #40 capsule 09/12/16 01/17/17 CAP] Cephalexin [Keflex] 500 mg PO Q6H #28 capsule 02/18/17 - Allergies Allergies/Adverse Reactions: Allergies Allergy/AdvReac Type Severity Reaction Status Date / Time enalapril Allergy Unknown Verified 04/30/17 09:17 verapamil Allergy Unknown Verified 04/30/17 09:17 - Social History Does the pt smoke?: No Smoking Status: Never smoker Does the pt drink ETOH?: No Does the pt have substance abuse?: No - Immunizations Immunizations are current?: No - POLST Patient has POLST: Yes PD ED PE NORMAL - Vitals Vital signs reviewed: Yes - HEENT HEENT: Other (R nares packed) Results - Vitals Vitals: Vital Signs - 24 hr 04/30/17 09:14 Temperature 36.7 C Heart Rate 76 Respiratory 22 Rate Blood Pressure 181/102 H O2 Saturation 94 Oxygen O2 Source Nasal cannula Oxygen Flow Rate 2 PD MEDICAL DECISION MAKING - ED course ED course: rhinorckets moistened deflated and removed small trckle of posterior blood after then no more will dc Departure - Departure Disposition: 01 Home, Self Care Clinical Impression: Epistaxis Condition: Good Instructions: ED Nosebleed Follow-Up: Alexandra Steinberg MD [Primary Care Provider] - [facility] [Provider Group] Comments: If the bleeding re-occurs, do the following 1) gently blow your nose to get rid of any clots 2) give yourself a biq squirt of afrin in the bleeding nostril sniffing as you squeeze 3) apply the clamp we gave you as directed and leave it on for at least 30 minutes if that does not stop the bleeding, come back to the ER for another packing or nasal TXA medication It looks like this was a posterior bleed so i recommend you follow up with ENT for further evaluation - call the office to schedule And please follow up with your PMD about your blood pressure - it was high today
[2017-04-30 10:12] VITALS: BP 169/98
== END 2017-04-30 10:11 | disposition home or self-care (01) ==
LOC: ED 09:01
DX: R04.0 Epistaxis (principal); I10 Essential (primary) hypertension; E78.00 Pure hypercholesterolemia, unspecified; E11.42 Type 2 diabetes mellitus with diabetic polyneuropathy; Z86.718 Personal history of other venous thrombosis and embolism; Z79.4 Long term (current) use of insulin
CPT/HCPCS: 99283; A9270

== ENCOUNTER 2017-06-12 09:07 | Outpatient (CLI) | payer MEDICARE, OTHER ==
--- NOTE | 2017-06-12 13:43 | XRAY Report ---
TWO VIEW LEFT FOOT: 06/12/2017 CLINICAL INDICATION: Foot ulcer. FINDINGS: Frontal and lateral views of the left foot were obtained, with bandage material in place. Soft tissue swelling is present. Plantar ulceration is noted. There is likely osteolysis of the cortex of the base of the 5th metatarsal, compatible with osteomyelitis. Degenerative changes are present. IMPRESSION: LIKELY OSTEOMYELITIS OF THE BASE OF THE 5TH METATARSAL, WITH OVERLYING FOOT ULCER. DEGENERATIVE CHANGES. TD: 06/12/2017 13:09 EDIS
--- NOTE | 2017-06-14 18:21 | Ultrasound Report ---
LEFT LEG ARTERIAL DUPLEX: 06/12/2017 CLINICAL INDICATION: Diabetic foot ulcer. TECHNIQUE: Real-time sonographic vascular imaging was performed by the hot metal crane operator through the left lower extremity utilizing both color-flow and Doppler spectral analysis. Multiple tax representative static images were saved for review. RIGHT SIDE: N/A LEFT SIDE SITE PSV WAVEFORM STEN LABORER WHARF 168 monophasic -- PSFA 158 monophasic -- MSFA 159 monophasic -- DSFA 177 monophasic -- PFA 79 monophasic -- POP 120 monophasic -- BARB 104 monophasic -- PUBLICITY EXPERT 113 monophasic -- PER 85 monophasic -- DPA 128 monophasic -- FINDINGS LEFT LEG: Waveforms are diffusely monophasic, compatible with inflow disease. There is no evidence of a focal hemodynamically significant stenosis in the left leg. IMPRESSION: DIFFUSELY MONOPHASIC WAVEFORMS IN THE LEFT LEG, COMPATIBLE WITH INFLOW DISEASE. TD: 06/12/2017 13:06 MTDD
== END 2017-06-12 09:08 | disposition home or self-care (01) ==
LOC: DI 09:07
PROVIDERS: ATTEND Internal Medicine
DX: E11.621 Type 2 diabetes mellitus with foot ulcer (principal); L97.524 Non-pressure chronic ulcer of other part of left foot with necrosis of bone

== ENCOUNTER 2017-06-13 11:08 | Outpatient (CLI) | payer MEDICARE, OTHER | END 2017-06-13 11:09 | disposition critical access hospital (66) | LOC: EMS 11:08 | PROVIDERS: ATTEND Surgery | DX: R53.1 Weakness (principal); R26.2 Difficulty in walking, not elsewhere classified | CPT/HCPCS: A0425; A0429 ==

== ENCOUNTER 2017-06-13 11:22 | Inpatient (IN) | payer MEDICARE, OTHER ==
[2017-06-13 12:04] LABS: BASOPHILS # (AUTO) 0.1 10^3/uL (0.0-0.1); BASOPHILS % (AUTO) 0.4 %; EOSINOPHILS # (AUTO) 0.2 10^3/uL (0.0-0.7); EOSINOPHILS % (AUTO) 1.6 %; HGB - HEMOGLOBIN 7.1 g/dL (12.0-16.0); LYMPHOCYTES # (AUTO) 1.2 10^3/uL (1.5-3.5); LYMPHOCYTES % (AUTO) 8.1 %; MEAN CORPUSCULAR HEMOGLOBIN 21.6 pg (27.0-31.0); MEAN CORPUSCULAR HGB CONC 30.1 g/dL (32.0-36.0); MEAN CORPUSCULAR VOLUME 71.8 fL (81.0-99.0); MONOCYTES # (AUTO) 0.5 10^3/uL (0.0-1.0); MONOCYTES % (AUTO) 3.5 %; NEUTROPHILS # (AUTO) 13.2 10^3/uL (1.5-6.6); NEUTROPHILS % (AUTO) 86.4 %; PLT - PLATELET COUNT 375 10^3/uL (130-450); RED BLOOD COUNT 3.27 10^6/uL (4.20-5.40); RED CELL DISTRIBUTION WIDTH 18.2 % (12.0-15.0); WHITE BLOOD COUNT 15.3 x10^3/uL (4.8-10.8)
[2017-06-13 12:05] LABS: CALCIUM 8.4 mg/dL (8.5-10.3); CREATININE 1.5 mg/dL (0.4-1.0)
[2017-06-13] MEDS ORDERED: PIPERACILLIN/TAZOBACTAM 3.375 GM in SODIUM CHLORIDE 0.9% MINIBAG 100 ML IV STA (12:18)
[2017-06-13] MEDS ORDERED: VANCOMYCIN INJ 1 GM in SODIUM CHLORIDE 0.9% 500 ML IV STA (12:18)
--- NOTE | 2017-06-13 12:32 | ED Physician Documentation ---
History of Present Illness - Stated complaint Stated Complaint: LEG INFECTION - Chief complaint Chief Complaint: Ext Problem - Additonal information Additional information: hx from pt 72 f diabetic long standing ulcer to sole of left foot has been seen at [facility], at [facility] and has [facility] was at [facility] this week and had xray and sono and wound cx done she feels ill her blood suagrs have been up and down and now her leg is very swollen and red hx DVT (per EMR pt is not sure that is correct) in any case not on coumadin now Review of Systems Constitutional: reports: Chills, Myalgias, Fatigue. denies: Fever Cardiac: denies: Chest pain / pressure Respiratory: denies: Dyspnea, Cough GI: denies: Abdominal Pain Skin: reports: Rash Musculoskeletal: reports: Extremity swelling Endocrine: denies: Easy bruising / bleeding Immunocompromised: denies: Immunocompromised PD PAST MEDICAL HISTORY - Past Medical History Past Medical History: Yes Cardiovascular: Hypertension, High cholesterol, Deep vein thrombosis Respiratory: COPD, Sleep apnea, CPAP use Neuro: Peripheral neuropathy Endocrine/Autoimmune: Type 2 diabetes GI: None : Incontinence HEENT: None Musculoskeletal: Chronic back pain Derm: Psoriasis - Past Surgical History Past Surgical History: Yes HEENT: Tonsil/Adenoidectomy - Present Medications Home Medications: Ambulatory Orders Medication Instructions Recorded Confirmed Insulin Glargine [Lantus Solostar] 80 units SQ DAILY 02/14/14 06/13/17 Lovastatin 40 mg PO QPM 02/14/14 06/13/17 Metoprolol Tartrate 50 mg PO BID 02/14/14 06/13/17 Gabapentin [Neurontin] 200 mg PO Q8H 05/15/16 06/13/17 Levothyroxine [Synthroid] 25 mcg PO DAILY 05/15/16 06/13/17 Albuterol 1.5 ml NEB BID 09/10/16 06/13/17 Cholecalciferol (Vitamin D3) 2,000 units PO DAILY 09/10/16 06/13/17 [Vitamin D3] Diltiazem HCl [Diltiazem ER] 120 mg PO DAILY 09/10/16 06/13/17 Ferrous Sulfate 325 mg PO DAILY 09/10/16 06/13/17 Furosemide 40 mg PO DAILY 09/10/16 06/13/17 Insulin Aspart [Novolog Flexpen] 15 units SQ AC 09/10/16 06/13/17 Insulin Glargine [Lantus Solostar] 90 units SQ QPM 09/10/16 06/13/17 Lisinopril 5 mg PO DAILY 09/10/16 06/13/17 Acetaminophen [Tylenol Extra 500 mg PO Q6H PRN 06/13/17 06/13/17 Strength] Aspirin Chewable [St Rudi 81 mg PO DAILY 06/13/17 06/13/17 Aspirin] - Allergies Allergies/Adverse Reactions: Allergies Allergy/AdvReac Type Severity Reaction Status Date / Time enalapril Allergy Unknown Verified 06/13/17 11:31 verapamil Allergy Unknown Verified 06/13/17 11:31 - Social History Does the pt smoke?: No Smoking Status: Never smoker Does the pt drink ETOH?: No Does the pt have substance abuse?: No - Immunizations Immunizations are current?: No - POLST Patient has POLST: Yes PD ED PE NORMAL - Vitals Vital signs reviewed: Yes - Cardiac Cardiac: RRR - Respiratory Respiratory: No respiratory distress, Clear bilaterally - Rectal Rectal: Other (brown darwin strong occult blood + QC passed) - Derm Derm: Other (erythema and warmth LLE to the knee,erythema and dampness to buttocks and labial region c/w early decub) - Extremities Extremities: Other (approx 3.5 cm diameter deep decrotic ulcer to lateral aspect mid sole L foot, doot and lower leg warm erythematous and swollen, + cap refill, dec sensation not new per pt, no crepitus or bullae) Results - Vitals Vitals: Vital Signs - 24 hr 06/13/17 06/13/17 11:24 11:30 Temperature 35.9 C L Heart Rate 65 Respiratory 20 Rate Blood Pressure 149/60 H O2 Saturation 94 Oxygen O2 Source Nasal cannula - Labs Labs: Laboratory Tests 06/13/17 06/13/17 06/13/17 11:45 11:45 13:10 WBC 15.3 H RBC 3.27 L Hgb 7.1 L Hct 23.4 L MCV 71.8 L MCH 21.6 L MCHC 30.1 L RDW 18.2 H Plt Count 375 MPV 6.0 L Neut # 13.2 H Lymph # 1.2 L Patrick # 0.5 Eos # 0.2 Baso # 0.1 Absolute Nucleated RBC 0.02 Nucleated RBC % 0.2 Sodium 134 L Potassium 3.7 Chloride 94 L Carbon Dioxide 30 Anion Gap 10.0 BUN 46 H Creatinine 1.5 H Estimated GFR (MDRD) 34 L Glucose 183 H Lactic Acid 1.0 Calcium 8.4 L Blood Type Antibody Screen 06/13/17 13:10 WBC RBC Hgb Hct MCV MCH MCHC RDW Plt Count MPV Neut # Lymph # Patrick # Eos # Baso # Absolute Nucleated RBC Nucleated RBC % Sodium Potassium Chloride Carbon Dioxide Anion Gap BUN Creatinine Estimated GFR (MDRD) Glucose Lactic Acid Calcium Blood Type A POSITIVE Antibody Screen NEGATIVE - Rads (name of study) LLE doppler Radiology: See rad report (no DVT) PD MEDICAL DECISION MAKING - ED course ED course: xray from yesterday = 5th MT osteo arterial doppler for yesterday = monophasic flow on rectal exam I also noted buttock and labial erythema c/w early decub Departure - Departure Disposition: [facility] DC/Xfer Clinical Impression: Renal insufficiency Osteomyelitis Qualifiers: Osteomyelitis type: unspecified type Osteomyelitis location: foot Laterality: left Qualified Code(s): M86.9 - Osteomyelitis, unspecified Cellulitis Qualifiers: Site of cellulitis: extremity Site of cellulitis of extremity: lower extremity Laterality: left Qualified Code(s): L03.116 - Cellulitis of left lower limb Anemia Qualifiers: Anemia type: unspecified type Qualified Code(s): D64.9 - Anemia, unspecified GI bleed Qualifiers: GI bleed type/associated pathology: unspecified gastrointestinal hemorrhage type Qualified Code(s): K92.2 - Gastrointestinal hemorrhage, unspecified Condition: Fair
[2017-06-13] MEDS ORDERED: VANCOMYCIN 1 GM VIAL ONE (13:55)
[2017-06-13] MEDS ORDERED: VANCOMYCIN INJ 1 GM in SODIUM CHLORIDE 0.9% 250 ML IV SCH (15:00)
[2017-06-13] MEDS ORDERED: ONDANSETRON 4 MG/2 ML VIAL IVP PRN (15:26)
[2017-06-13] MEDS ORDERED: ACETAMINOPHEN 325 MG TABLET PO PRN (15:26)
[2017-06-13] MEDS ORDERED: PIPERACILLIN/TAZOBACTAM 3.375 GM in SODIUM CHLORIDE 0.9% MINIBAG 100 ML IV SCH (16:00)
[2017-06-13 16:08] LABS: MEAN RETIC VALUE 94.6; RED BLOOD COUNT 3.23 10^6/uL (4.20-5.40)
[2017-06-13 16:16] LABS: % IRON SATURATION 5 % (20-50); IRON 24 ug/dL (28-170); TOTAL IRON BINDING CAPACITY 484 ug/dL (250-450); TRANSFERRIN 346 mg/dL (192-382)
--- NOTE | 2017-06-13 16:28 | HISTORY & PHYSICAL EXAMINATION ---
Chief Complaint - Chief Complaint Chief Complaint: foot infection History of Present Illness - Admitted From Admitted From:: ER - History Obtained From History obtained from: pt - History of Present Illness HPI Comment/Other: Ms. Kearney is 72-yrs-old female with a PMH significant for morbid obesity, uncontrolled DM2 foot infection, chronic iron deficiency anemia, medical non- compliance, CKD, chronic afib, HTN, hx of DVT, COPD, Sleep apnea with CPAP usage , peripheral neuropathy, incontinence, chronic back pain, psoriasis, who present ER complaints of left foot ulcer. pt is a poor historian. Pt report she had left foot ulcer for couple of months. She has [place] [facility] [facility]. But the ulcer did not become better, she felt sickness. Pt denies fever, chill. She did not note blackish stool or GI bleeding. Pt denies chest pain, shortness of breath, fever, chill, night sweating. Xray of left foot reveals likely osteomyelitis of the base of the 5th metatarsal with overlying foot ulcer. Lab test in ER reveals BUN 46, creatinine 1.5, HGB 7.1. History - Past Medical History Cardiovascular: reports: Hypertension, High cholesterol, Deep vein thrombosis Respiratory: reports: COPD, Sleep apnea, CPAP use Neuro: reports: Peripheral neuropathy Endocrine/Autoimmune: reports: Type 2 diabetes GI: reports: None : reports: Incontinence HEENT: reports: None Musculoskeletal: reports: Chronic back pain Derm: reports: Psoriasis MRSA Hx?: No - Past Surgical History HEENT: reports: Tonsil/Adenoidectomy - Family & Social History Family History: Mother: , CAD, CVA/TIA, Diabetes, Type 2, Father: , Cancer Family History Comment/Other: pt report she is single, never , no child. She is living [place] with herself. Her brother and sister in law, and her friend help her as she needed. 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 She never smoking, no alcohol or drug problem. - Substance History Use: Uses substance without health or social issues: NONE Abuse: Recurrent use of substance despite neg consequences: NONE - POLST Patient has POLST: Yes POLST Status: DNR Meds/Allgy - Home Medications Home Medications: Ambulatory Orders Medication Instructions Recorded Confirmed Insulin Glargine [Lantus Solostar] 80 units SQ DAILY 02/14/14 06/13/17 Lovastatin 40 mg PO QPM 02/14/14 06/13/17 Metoprolol Tartrate 50 mg PO BID 02/14/14 06/13/17 Gabapentin [Neurontin] 200 mg PO Q8H 05/15/16 06/13/17 Levothyroxine [Synthroid] 25 mcg PO DAILY 05/15/16 06/13/17 Albuterol 1.5 ml NEB BID 09/10/16 06/13/17 Cholecalciferol (Vitamin D3) 2,000 units PO DAILY 09/10/16 06/13/17 [Vitamin D3] Diltiazem HCl [Diltiazem ER] 120 mg PO DAILY 09/10/16 06/13/17 Ferrous Sulfate 325 mg PO DAILY 09/10/16 06/13/17 Furosemide 40 mg PO DAILY 09/10/16 06/13/17 Insulin Aspart [Novolog Flexpen] 15 units SQ AC 09/10/16 06/13/17 Insulin Glargine [Lantus Solostar] 90 units SQ QPM 09/10/16 06/13/17 Lisinopril 5 mg PO DAILY 09/10/16 06/13/17 Acetaminophen [Tylenol Extra 500 mg PO Q6H PRN 06/13/17 06/13/17 Strength] Aspirin Chewable [St Rudi 81 mg PO DAILY 06/13/17 06/13/17 Aspirin] - Allergies Allergies/Adverse Reactions: Allergies Allergy/AdvReac Type Severity Reaction Status Date / Time enalapril Allergy Unknown Verified 06/13/17 11:31 verapamil Allergy Unknown Verified 06/13/17 11:31 Review of Systems - Constitutional Constitutional: reports: Fatigue. denies: Fever, Chills, Malaise, Weakness, Poor appetite, Diaphoresis, Night sweats - Eyes Eyes: denies: Pain, Amaurosis, Blurred vision, Spots in vision, Field loss, Vision loss, Dipolpia - Ears, Nose & Throat Ears, Nose & Throat: denies: Ear pain, Hearing loss, Hearing aids, Vertigo, Nasal pain, Nasal discharge, Nosebleeds, Nasal congestion, Postnasal drainage, Sore throat, Mouth lesions, Bleeding gums - Cardiovascular Cariovascular: denies: Irregular heart rate, Palpitations, Chest pain, Edema, Lightheadedness, Syncope, Exertional dyspnea, Decr. exercise tolerance - Respiratory Respiratory: denies: Cough, Sputum production, Wheezing, Snoring, Hemoptysis, Orthopnea, SOB at rest, SOB with exertion - Gastrointestinal Gastrointestinal: denies: Abdominal pain, Abdominal distention, Constipation, Diarrhea, Change in bowel habits, Rectal bleeding, Black stools, Bloody stools, Nausea, Vomiting, Agapito blood emesis, Coffee grounds emesis, Reflux/heartburn, Poor appetite - Genitourinary Genitourinary: denies: Dysuria, Frequency, Urgency, Incontinence, Flank pain, Nocturia, Urethral discharge - Musculoskeletal Musculoskeletal: denies: Muscle pain, Muscle aches, Stiffness, Limited range of motion, Gout - Integumentary Integumentary: denies: Rash, Pruritis, Lesions, Dryness, Lumps, Acne, Pigment changes - Neurological Neurological: denies: General weakness, Focal weakness, Headache, Dizziness, Numbness, Memory problems, Pre-existing deficit, Abnormal gait, Seizures, Incoordination, Slurred speech - Psychiatric Psychiatric: denies: Depression, Anxiety, Suicidal, Delusions, Hallucinations, Homicidal - Endocrine Endocrine: denies: Polyuria, Polydypsia, Polyphagia, Intolerance to cold - Hematologic/Lymphatic Hematologic/Lymphatic: reports: Anemia, Recurrent infections. denies: Bruising , Petechiae, Blood clots, Lymphadenopathy, Bleeding tendencies Exam - Vital Signs Reviewed Vital Signs: Yes - Physical Exam General Appearance: positive: No acute distress, Alert. negative: Lethargic Eyes Bilateral: positive: Normal inspection, PERRL, No lid inflammation, Conjunctivae nml ENT: positive: ENT inspection nml, Pharynx nml, No signs of dehydration. negative: Purulent nasal drainage, Pharyngeal erythema, Oral lesions Neck: positive: Nml inspection, Thyroid nml, No JVD, Trachea midline. negative : Thyromegaly, Lymphadenopathy (R), Lymphadenopathy (L), Stiff neck, Carotid bruit, Swelling/bruising, Tracheal deviation Respiratory: positive: Chest non-tender, No respiratory distress, Breath sounds nml. negative: Wheezes, Rales, Rhonchi Cardiovascular: positive: Regular rate & rhythm, No murmur, No gallop. negative : Extrasystoles, Tachycardia, Bradycardia, Systolic murmur, Diastolic murmur Peripheral Pulses: positive: 2+ Abdomen: positive: Non-tender, Nml bowel sounds. negative: Tenderness, Guarding , Rebound Back: positive: Nml inspection. negative: CVA tenderness (R), CVA tenderness (L ) Skin: positive: Color nml, No rash, Warm, Dry. negative: Cyanosis, Diaphoresis , Pallor Extremities: positive: Non-tender, Full ROM, Pedal edema. negative: Calf tenderness, Joint swelling, Ellen's sign/cords Neurologic/Psychiatric: positive: Oriented x3, Sensation nml. negative: Sensory loss, Facial droop, Slurred/abnml speech, Depressed mood/affect Conclusion/Plan - Problem List (1) Diabetic foot ulcer Conclusion/Plan: pt report infection has been couples of months. The infection is located at left foot lateral. Xray reveals likely osteomyelitis consult with orthopedics, follow up zosyn and vancomycin Lactic acid blood and would culture, follow up gently IVF daily lab, and vital monitor order ECHO, follow up Pt has BMI 47.9. Royal criteria of cardiac risk index is 6.6% pt does not desire for orthopedic surgery yet, state" think about for couple of days." Qualifiers: Diabetic foot ulcer location: midfoot Diabetes mellitus type: type 2 Laterality: left Non-pressure ulcer stage: limited to breakdown of skin Qualified Code(s): E11.621 - Type 2 diabetes mellitus with foot ulcer; L97.421 - Non-pressure chronic ulcer of left heel and midfoot limited to breakdown of skin; L97.421 - Non-pressure chronic ulcer of left heel and midfoot limited to breakdown of skin; L97.421 - Non-pressure chronic ulcer of left heel and midfoot limited to breakdown of skin; L97.421 - Non-pressure chronic ulcer of left heel and midfoot limited to breakdown of skin (2) GI bleed Conclusion/Plan: Positive blood rectal test in ER. HGB 7.1. pt also has chronic anemia with CKD at stage 3/4 consult with surgeon, follow up H&H monitor pt pt is asymptomatic now, will transfusion of blood as needed (3) Cellulitis Conclusion/Plan: left leg with swelling and erythema, and warmth. It is more likely a cellulitis treat with Zosyn and Vancomycin blood culture, follow up gently IVF daily lab and vital monitor Qualifiers: Site of cellulitis: extremity Site of cellulitis of extremity: lower extremity Laterality: left Qualified Code(s): L03.116 - Cellulitis of left lower limb (4) Acute type 2 diabetes mellitus with manifestations Conclusion/Plan: resume home insulin schedule slide scale, ACHS check A1C hypoglycemia protocol (5) Obesities, morbid Conclusion/Plan: encourage pt loss of weight (6) Anemia Conclusion/Plan: pt has chronic anemia, has been Iron pill. but pt has been medical non- compliance, as pt state she stop it by her self. Also it is positive recta bleeding test. It may combine with chronic CKD, iron deficiency, medical non- compliance, DM2 and acute blood loss. Iron anemia study resume home Iron schedule follow surgery for GI bleeding Qualifiers: Anemia type: unspecified type Qualified Code(s): D64.9 - Anemia, unspecified (7) Renal insufficiency Conclusion/Plan: chronic kidney disease, will gently IVF, hydration to pt daily lab, vital monitor (8) HTN (hypertension) Conclusion/Plan: stable, resume home BP medication vital monitor (9) COPD (chronic obstructive pulmonary disease) Conclusion/Plan: stable, no acute events. resume INH treatment vital monitor (10) Hx of deep venous thrombosis Conclusion/Plan: Order US for R/O DVT, follow up stop Heparin for DVT prophylaxis due to GI bleeding SCD for right leg (11) Medical non-compliance Conclusion/Plan: pt report to me she just stopped her medication by her self consult and advise pt medical-compliance (12) DVT prophylaxis Conclusion/Plan: heparin for prophylaxis now (13) Do not intubate, cardiopulmonary resuscitation (CPR)-only code status Conclusion/Plan: pt clearly request DNR - Lab Results Fish Bones: 06/14/17 09:07 06/14/17 09:07 Core Measures - Anticipated LOS I expect patient to be DC'd or transferred within 96 hours.: Yes - DVT/VTE - Prophylaxis VTE/DVT Device ordered at admit?: Yes VTE/DVT Prophylaxis med ordered at admit?: No Not Ordered - Medical Reason: Contraindicated
[2017-06-13 16:33] LABS: FERRITIN 9.5 ng/mL (11.0-306.8)
[2017-06-13 16:51] LABS: HB2 TOTAL 7.7 g/dL; HEMOGLOBIN A1C 0.57 g/dL; HEMOGLOBIN A1C % 8.9 % (4.6-6.2)
[2017-06-13] MEDS ORDERED: VANCOMYCIN INJ 1 GM in SODIUM CHLORIDE 0.9% 250 ML IV ONE (17:00)
[2017-06-13] MEDS ORDERED: ZINC OXIDE 20% OINT 28.35 GM TUBE TOP PRN (17:34)
[2017-06-13] MEDS: PANTOPRAZOLE 40 MG TABLET PO SCH (17:45)
[2017-06-13] MEDS: FERROUS SULFATE 325 MG TABLET PO SCH ×2 (17:45→18:03)
[2017-06-13] MEDS: SODIUM CHLORIDE 0.9% 1,000 ML IV SCH (18:02)
[2017-06-13] MEDS: INSULIN ASPART 300 UNIT/3 ML PEN SUBQ SCH ×2 (18:03→22:30)
[2017-06-13] MEDS: ALBUTEROL NEB 2.5 MG/3 ML INH PRN (18:09)
--- NOTE | 2017-06-13 18:22 | Ultrasound Report ---
LEFT LEG VENOUS DUPLEX: 06/13/2017 CLINICAL INDICATION: History of DVT, swelling. TECHNIQUE: Real-time sonographic vascular imaging was performed by the supply chain coordinator through the left lower extremity utilizing both color flow and Doppler spectral analysis. Multiple event sales representative static images were saved for review. FINDINGS: A left lower extremity venous sonogram is performed revealing the common femoral, superficial femoral, profunda femoris, and popliteal veins to be adequately visualized without intraluminal defects. There is normal venous compression, augmentation, phasicity, and spontaneity of venous flow. In the calf, the visualized more cephalad portions of posterior tibial and peroneal veins are grossly compressible, without filling defects. IMPRESSION: NO EVIDENCE OF DEEP VENOUS THROMBOSIS. TD: 06/13/2017 18:21
[2017-06-13] MEDS: SODIUM CHLORIDE FLUSH 0.9% 10 ML SYRINGE IVP SCH (18:47)
[2017-06-13] MEDS: NYSTATIN CREAM 15 GM TUBE TOP SCH (19:47)
[2017-06-13 20:13] LABS: HGB - HEMOGLOBIN 6.6 g/dL (12.0-16.0)
[2017-06-13] MEDS: ATORVASTATIN 10 MG TABLET PO SCH (22:27)
[2017-06-13] MEDS: GABAPENTIN 100 MG CAPSULE PO SCH (22:27)
[2017-06-13] MEDS: METOPROLOL TARTRATE 50 MG TABLET PO SCH (22:28)
[2017-06-13] MEDS: INSULIN GLARGINE 300 UNIT/3 ML PEN SUBQ SCH (22:29)
[2017-06-13] MEDS: PIPERACILLIN/TAZOBACTAM 2.25 GM in SODIUM CHLORIDE 0.9% MINIBAG 100 ML IV SCH (22:38)
[2017-06-13] MEDS: HEPARIN 5,000 UNIT/ML VIAL SUBQ SCH (22:44)
[2017-06-14] MEDS: SODIUM CHLORIDE FLUSH 0.9% 10 ML SYRINGE IVP SCH ×4 (00:47→23:36)
[2017-06-14] MEDS: PIPERACILLIN/TAZOBACTAM 2.25 GM in SODIUM CHLORIDE 0.9% MINIBAG 100 ML IV SCH ×4 (04:23→23:30)
[2017-06-14] MEDS: PANTOPRAZOLE 40 MG TABLET PO SCH (06:39)
[2017-06-14] MEDS: GABAPENTIN 100 MG CAPSULE PO SCH ×3 (06:39→21:24)
[2017-06-14] MEDS: LEVOTHYROXINE 25 MCG TABLET PO SCH (06:39)
[2017-06-14] MEDS: HEPARIN 5,000 UNIT/ML VIAL SUBQ SCH (08:33)
[2017-06-14] MEDS: FERROUS SULFATE 325 MG TABLET PO SCH ×2 (08:33→17:57)
[2017-06-14] MEDS: FUROSEMIDE 20 MG TABLET PO SCH (08:34)
[2017-06-14] MEDS: diltiaZEM CD 120 MG CAPSULE PO SCH (08:34)
[2017-06-14] MEDS: CHOLECALCIFEROL 1,000 UNIT TABLET PO SCH (08:34)
[2017-06-14] MEDS: ASPIRIN CHEW 81 MG TABLET PO SCH (08:34)
[2017-06-14] MEDS: NYSTATIN POWDER 15 GM TOP SCH ×3 (08:34→21:24)
[2017-06-14] MEDS: METOPROLOL TARTRATE 50 MG TABLET PO SCH ×2 (08:38→21:24)
[2017-06-14] MEDS: POLYETHYLENE GLYCOL 3350 17 GM PACKET PO SCH (08:39)
[2017-06-14] MEDS ORDERED: LISINOPRIL 5 MG TABLET PO SCH (09:00)
[2017-06-14] MEDS: SODIUM CHLORIDE 0.9% 1,000 ML IV SCH (09:03)
[2017-06-14] MEDS: INSULIN ASPART 300 UNIT/3 ML PEN SUBQ SCH ×4 (09:04→21:26)
[2017-06-14] MEDS: INSULIN GLARGINE 300 UNIT/3 ML PEN SUBQ SCH ×2 (09:05→21:25)
[2017-06-14] MEDS: NYSTATIN CREAM 15 GM TUBE TOP SCH ×2 (09:06→21:24)
[2017-06-14 09:11] LABS: BASOPHILS # (AUTO) 0.1 10^3/uL (0.0-0.1); BASOPHILS % (AUTO) 0.8 %; EOSINOPHILS # (AUTO) 0.3 10^3/uL (0.0-0.7); EOSINOPHILS % (AUTO) 2.9 %; HGB - HEMOGLOBIN 8.5 g/dL (12.0-16.0); LYMPHOCYTES % (AUTO) 8.8 %; MEAN CORPUSCULAR VOLUME 74.2 fL (81.0-99.0); MEAN PLATELET VOLUME 5.9 fL (7.9-10.8); MONOCYTES # (AUTO) 0.4 10^3/uL (0.0-1.0); NEUTROPHILS % (AUTO) 83.5 %; PLT - PLATELET COUNT 338 10^3/uL (130-450); RED BLOOD COUNT 3.71 10^6/uL (4.20-5.40); RED CELL DISTRIBUTION WIDTH 18.7 % (12.0-15.0); WHITE BLOOD COUNT 10.8 x10^3/uL (4.8-10.8)
[2017-06-14 09:25] LABS: ALBUMIN 2.9 g/dL (3.2-5.5); ALBUMIN/GLOBULIN RATIO 0.7 (1.0-2.2); BILIRUBIN,TOTAL 0.7 mg/dL (0.2-1.0); CALCIUM 8.2 mg/dL (8.5-10.3); CREATININE 1.5 mg/dL (0.4-1.0); INR 1.1 (0.8-1.2); MAGNESIUM 2.2 mg/dL (1.7-2.8); PT - PROTHROMBIN TIME 12.6 secs (9.9-12.6); TOTAL PROTEIN 7.1 g/dL (6.7-8.2)
--- NOTE | 2017-06-14 11:17 | CONSULTATION NOTE ---
Referring Provider Name of Referring Provider:: Villasenor Thurman Consult Date: 06/14/17 Chief Complaint - Chief Complaint Chief Complaint: iron deficiency anemia, occult gi bleeding History of Present Illness - Admitted From Admitted From:: ED - History Obtained From Records Reviewed: yes History obtained from: pt Exam Limitations: none - History of Present Illness HPI Comment/Other: 72 yo woman admitted last night from the ER with a diabetic soft tissue infection of the left foot with suspected osteomyelitis, who was also noted to be markedly anemic with a Hgb of 7.4, dropping to 6.6 today, microcytic indices , hx of iron deficiency, and was noted to have heme + but grossly otherwise nl appearing stool in the ER. Pt reports hx of iron deficiency for some time and has been prescribed iron supplements which she stopped several weeks ago. She reports being worked up in the past for this condition with a barium enema last year performed here, but records show she had an air contrast barium study in 2011 showing diverticulosis and no more recent studies; she reports blood in the toilet bowel when she urinates and had a urologic workup in [place] some time ago that was also reportedly benign. She denies abd pain, N/V, dysphagia, heartburn, hx PUD, melena, hematochezia, unexplained wt loss or change in bowel habits. Neg FH GI tumors. She denies other prior gi evaluations. She denies use of alcohol, tobacco or NSAIDs other than 81 mg of aspirin daily. History - Past Medical History Cardiovascular: reports: Hypertension, High cholesterol, Deep vein thrombosis Respiratory: reports: COPD, Sleep apnea, CPAP use Neuro: reports: Peripheral neuropathy Endocrine/Autoimmune: reports: Type 2 diabetes, Other (morbid obesity) GI: reports: None. denies: GI bleed, Ulcers, Chronic diarrhea, Chronic constipation : reports: Incontinence HEENT: reports: None Musculoskeletal: reports: Chronic back pain Derm: reports: Psoriasis MRSA Hx?: No - Past Surgical History HEENT: reports: Tonsil/Adenoidectomy - Family & Social History Family History: Mother: , CAD, CVA/TIA, Diabetes, Type 2, Father: , Cancer Family History Comment/Other: pt report she is single, never , no child. [place]. Her brother and sister in law, and her friend help her as she needed. 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 She never smoking, no alcohol or drug problem. - Substance History Use: Uses substance without health or social issues: NONE Abuse: Recurrent use of substance despite neg consequences: NONE - POLST Patient has POLST: Yes POLST Status: DNR Meds/Allgy - Home Medications Home Medications: Ambulatory Orders Medication Instructions Recorded Confirmed Insulin Glargine [Lantus Solostar] 80 units SQ DAILY 02/14/14 06/13/17 Lovastatin 40 mg PO QPM 02/14/14 06/13/17 Metoprolol Tartrate 50 mg PO BID 02/14/14 06/13/17 Gabapentin [Neurontin] 200 mg PO Q8H 05/15/16 06/13/17 Levothyroxine [Synthroid] 25 mcg PO DAILY 05/15/16 06/13/17 Albuterol 1.5 ml NEB BID 09/10/16 06/13/17 Cholecalciferol (Vitamin D3) 2,000 units PO DAILY 09/10/16 06/13/17 [Vitamin D3] Diltiazem HCl [Diltiazem ER] 120 mg PO DAILY 09/10/16 06/13/17 Ferrous Sulfate 325 mg PO DAILY 09/10/16 06/13/17 Furosemide 40 mg PO DAILY 09/10/16 06/13/17 Insulin Aspart [Novolog Flexpen] 15 units SQ AC 09/10/16 06/13/17 Insulin Glargine [Lantus Solostar] 90 units SQ QPM 09/10/16 06/13/17 Lisinopril 5 mg PO DAILY 09/10/16 06/13/17 Acetaminophen [Tylenol Extra 500 mg PO Q6H PRN 06/13/17 06/13/17 Strength] Aspirin Chewable [St Rudi 81 mg PO DAILY 06/13/17 06/13/17 Aspirin] - Allergies Allergies/Adverse Reactions: Allergies Allergy/AdvReac Type Severity Reaction Status Date / Time enalapril Allergy Unknown Verified 06/13/17 11:31 verapamil Allergy Unknown Verified 06/13/17 11:31 Review of Systems - Constitutional Constitutional: denies: Poor appetite, Weight gain, Weight loss - Gastrointestinal Gastrointestinal: denies: Abdominal pain, Abdominal distention, Constipation, Diarrhea, Change in bowel habits, Rectal bleeding, Black stools, Bloody stools, Nausea, Vomiting, Coffee grounds emesis, Reflux/heartburn Exam - Vital Signs Reviewed Vital Signs: Yes Vital Signs: Vital Signs x48h Temp Pulse Pulse Resp BP BP Pulse Ox 06/14/17 08:45 100 133/61 H 06/14/17 08:38 133/61 H 06/14/17 08:00 36.2 C L 96 18 124/61 94 06/14/17 06:36 36.3 C L 100 19 120/55 L 06/14/17 03:15 36.3 C L 98 20 126/56 L - Physical Exam General Appearance: positive: No acute distress, Alert Eyes Bilateral: positive: Normal inspection ENT: positive: ENT inspection nml Neck: positive: No JVD. negative: Lymphadenopathy (R), Lymphadenopathy (L) Respiratory: positive: No respiratory distress, Breath sounds nml. negative: Wheezes, Rales, Rhonchi Cardiovascular: positive: Other (markedly diminished heart sounds) Abdomen: positive: Non-tender, No distention, Other (marked truncal obesity.). negative: Guarding, Rebound Skin: positive: Color nml Extremities: positive: Pedal edema, Other (left lower leg markedly swollen below the knee with erythma; dressing on foot.) Neurologic/Psychiatric: positive: Oriented x3 Conclusion/Plan - Diagnosis Diagnosis: Iron deficiency anemia with hemoccult positive stool suggests occult gi bleeding as the etiology. DDX includes upper and lower gi sources including PUD, NSAID gastropathy, upper and lower gi neoplasm. Multiple medical comorbidities including morbid obesity, COPD, sleep apnea, pulmonary hypertension, IDDM, CKD increase her risk for invasive procedures. - Plan Plan: We discussed further evaluation with EGD/colonoscopy. Pt is very concerned about undergoing any type of anesthesia and is not willing to commit to any invasive procedure at this time that would require such. Pt could be evaluated with another air contrast BE and UGI series, with possible SBFT as necessary, if she wishes. I will be happy to see again if she reconsiders and wishes to proceed with endoscopic evaluation.l - Lab Results Fish Bones: 06/14/17 09:07 06/14/17 09:07 Other Lab Results: iron studies confirm iron deficiency - Diagnostic Imaging Results Diagnostic Imaging Results Comments: ECHO cardiogram shows severe pulmonary hypertension with RVSP of 80 mm Hg
[2017-06-14] MEDS: SODIUM CHLORIDE FLUSH 0.9% 10 ML SYRINGE IVP PRN (11:55)
--- NOTE | 2017-06-14 12:59 | PROVIDER PROGRESS NOTE ---
Subjective - Prog Note Date Prog Note Date: 06/14/17 Prog Note Time: 12:56 - Subjective Pt reports feeling: No change (Persistent drainage from left plantar wound at lateral mid-foot x several months. In wound care center.) Objective - Vital Signs/Intake & Output Vital Signs: Vital Signs x48h Temp Pulse Pulse Resp BP BP BP 06/14/17 12:51 36.3 C L 101 H 16 136/74 H 06/14/17 08:45 100 133/61 H 06/14/17 08:38 133/61 H 06/14/17 08:00 36.2 C L 96 18 124/61 06/14/17 06:36 36.3 C L 100 19 120/55 L Pulse Ox 06/14/17 12:51 96 06/14/17 08:45 06/14/17 08:38 06/14/17 08:00 94 06/14/17 06:36 Intake & Output: Intake & Output 06/11/17 06/12/17 06/13/17 06/14/17 23:59 23:59 23:59 23:59 Intake Total 900 2656 Output Total 800 700 Balance 100 1956 - Lab Results Fish Bones: 06/14/17 09:07 06/14/17 09:07 Other Labs: Lab Results x24hrs 06/14/17 06/14/17 06/14/17 Range/Units 09:07 09:07 09:07 WBC (4.8-10.8) x10^3/uL RBC (4.20-5.40) 10^6/uL Hgb (12.0-16.0) g/dL Hct (37.0-47.0) % MCV (81.0-99.0) fL MCH (27.0-31.0) pg MCHC (32.0-36.0) g/dL RDW (12.0-15.0) % Plt Count (130-450) 10^3/uL MPV (7.9-10.8) fL Neut # (1.5-6.6) 10^3/uL Lymph # (1.5-3.5) 10^3/uL [place] # (0.0-1.0) 10^3/uL Eos # (0.0-0.7) 10^3/uL Baso # (0.0-0.1) 10^3/uL Absolute Nucleated RBC x10^3/uL Nucleated RBC % /100WBC PT 12.6 (9.9-12.6) secs INR 1.1 (0.8-1.2) Sodium (135-145) mmol/L Potassium (3.5-5.0) mmol/L Chloride (101-111) mmol/L Carbon Dioxide (21-32) mmol/L Anion Gap (6-13) BUN (6-20) mg/dL Creatinine (0.4-1.0) mg/dL Estimated GFR (MDRD) (>89) Glucose (70-100) mg/dL Calcium (8.5-10.3) mg/dL Magnesium (1.7-2.8) mg/dL Total Bilirubin (0.2-1.0) mg/dL AST (10-42) IU/L ALT (10-60) IU/L Alkaline Phosphatase (42-121) IU/L B-Natriuretic Peptide 572 H (5-100) pg/mL Total Protein (6.7-8.2) g/dL Albumin (3.2-5.5) g/dL Globulin (2.1-4.2) g/dL Albumin/Globulin Ratio (1.0-2.2) TSH 5.52 (0.34-5.60) uIU/mL 06/14/17 06/14/17 06/13/17 Range/Units 09:07 09:07 20:02 WBC 10.8 (4.8-10.8) x10^3/uL RBC 3.71 L (4.20-5.40) 10^6/uL Hgb 8.5 L 6.6 L* (12.0-16.0) g/dL Hct 27.5 L 22.8 L (37.0-47.0) % MCV 74.2 L (81.0-99.0) fL MCH 23.0 L (27.0-31.0) pg MCHC 31.0 L (32.0-36.0) g/dL RDW 18.7 H (12.0-15.0) % Plt Count 338 (130-450) 10^3/uL MPV 5.9 L (7.9-10.8) fL Neut # 9.0 H (1.5-6.6) 10^3/uL Lymph # 1.0 L (1.5-3.5) 10^3/uL [place] # 0.4 (0.0-1.0) 10^3/uL Eos # 0.3 (0.0-0.7) 10^3/uL Baso # 0.1 (0.0-0.1) 10^3/uL Absolute Nucleated RBC 0.03 x10^3/uL Nucleated RBC % 0.3 /100WBC PT (9.9-12.6) secs INR (0.8-1.2) Sodium 138 (135-145) mmol/L Potassium 3.9 (3.5-5.0) mmol/L Chloride 98 L (101-111) mmol/L Carbon Dioxide 30 (21-32) mmol/L Anion Gap 10.0 (6-13) BUN 41 H (6-20) mg/dL Creatinine 1.5 H (0.4-1.0) mg/dL Estimated GFR (MDRD) 34 L (>89) Glucose 162 H (70-100) mg/dL Calcium 8.2 L (8.5-10.3) mg/dL Magnesium 2.2 (1.7-2.8) mg/dL Total Bilirubin 0.7 (0.2-1.0) mg/dL AST 12 (10-42) IU/L ALT 13 (10-60) IU/L Alkaline Phosphatase 112 (42-121) IU/L B-Natriuretic Peptide (5-100) pg/mL Total Protein 7.1 (6.7-8.2) g/dL Albumin 2.9 L (3.2-5.5) g/dL Globulin 4.2 (2.1-4.2) g/dL Albumin/Globulin Ratio 0.7 L (1.0-2.2) TSH (0.34-5.60) uIU/mL - Diagnostic Imaging Diagnostic Imaging Comments: XR suggest early cortical irregularity of proximal 5th MT, consistent with osteomyelitis - Other Results/Comments Other Results/Comments: EXAM: Plantar ulceration near the TMT area of the 5th ray of the foot - scant serous drainage seen. Minimally tender (?peripheral neuropathy); minimal erythema. Assessment/Plan - Problem List (1) Diabetic foot ulcer Impression: persistent drainage with XR changes suspicious of underlying osteomyelitis in this obese diabetic patient with multiple medical issues PLAN: IV antibiotics for left calf cellulitis. Further workup for possible osteomyelitis of midfoot to iclude MRI scan of foot. Discussed with patient the possible need to perform an amputation, if the goal to to eradicate the osteomyelitis. Will await the MRI scan and clinical improvement of her cellulitis and medical stabilization of her GI bleed, prior to further consideration of possible surgery.
--- NOTE | 2017-06-14 14:25 | CONSULTATION NOTE ---
DATE OF SERVICE: 06/14/2017 Physician: Norm Kang MD ORTHOPEDIC CONSULTATION REFERRING PHYSICIAN: Mcnamara, nurse practitioner of the hospitalist service. CHIEF COMPLAINT: "I have been having drainage from my left foot for several months." HISTORY OF PRESENT ILLNESS: The patient is a 72-year-old, obese, diabetic female patient who was admitted to the medical service yesterday for further evaluation and treatment for a chronically draining plantar ulceration over her left midfoot. The patient apparently has been having issues with wound healing in the plantar ulceration to her foot for several months. [facility]. The patient has had persistent drainage and was evaluated in the emergency room for this longstanding problem. In the past, her wound has grown out a multitude of organisms including Staphylococcus aureus, Proteus mirabilis, Enterobacter cloacae. The patient denies any recent fevers or chills. PHYSICAL EXAMINATION: The patient's right foot shows mild swelling or erythema noted in the midfoot area. Examination of her foot out of her dressing shows a rather large plantar ulceration over the lateral aspect of her midfoot. It probably measures about 1.5 cm in diameter. There is no fluctuance in this area. Minimal drainage noted today. There is no lymphangitis noted, though she clearly has some swelling and erythema in her calf suggestive of cellulitis. The patient moves [TIME: 02:41] on exam. Diminished sensation was noted. IMAGING: X-rays of the left foot were reviewed. Lateral views showed some early cortical changes seen at the base of the fifth metatarsal, which is consistent with osteomyelitis. This is in direct continuity on these x-rays with a plantar ulceration that the patient was seen clinically to have. ASSESSMENT: 1. Possible osteomyelitis of left foot, likely at the base of the fifth metatarsal from the patient's clinical presentation and radiographic appearance. 2. Diabetes. 3. Obesity. PLAN: Advised further workup to include an MRI scan of her foot. Unclear whether this can be done at this facility or not. If the patient does have an osteomyelitis, in my experience diabetics usually require surgical removal of the infected bone for a chance of a cure. In this case where this osteomyelitis is likely to be located, she would require an amputation, most likely a [id number] amputation. I discussed this with the patient today. She is not in favor of any amputation at this point. Would again obtain an MRI scan to determine if the bone is involved or not. If she chooses not to have an amputation, then would try to treat her with broad spectrum antibiotics IV for the next 6 weeks to see if this might eradicate her bone infection. This is not likely to be successful. If she, however, is in favor of an amputation because of her obesity and her other medical problems, would consider transfer to a more tertiary care facility because of potential perioperative complications due to her comorbidities. In the meantime, she will continue with her IV antibiotics and wound dressing changes to her foot. Would want to allow her cellulitis to her calf to improve/resolve before any surgical consideration can be done. Also, in view of her GI bleed, this would need to be stabilized and resolved prior to any semi-elective surgical procedure as well. The patient was requesting a second orthopedic evaluation. As I will be rotating off service on Friday, Dr. Mercedes will likely follow up and may provide additional consultation. TD: 06/14/2017 14:23
--- NOTE | 2017-06-14 15:45 | XRAY Report ---
EXAM: CHEST RADIOGRAPHY EXAM DATE: 06/14/2017 01:46 PM. CLINICAL HISTORY: Cough, shortness of breath. COMPARISON: 07/26/2016. TECHNIQUE: 1 view. FINDINGS: Lungs/Pleura: No focal consolidation. Vascular congestion and mild interstitial prominence without ov ert edema. No or definite pleural effusion. No pneumothorax. Mediastinum: Heart is enlarged. Prominent uday. Calcified aortic arch. Other: None. IMPRESSION: Cardiomegaly and vascular congestion. No focal consolidation. [facility] Referring Provider Line: [phone] SITE ID: [id number]
[2017-06-14] MEDS ORDERED: VANCOMYCIN INJ 1 GM, VANCOMYCIN INJ 500 MG in SODIUM CHLORIDE 0.9% 500 ML IV SCH (16:00)
--- NOTE | 2017-06-14 17:11 | PROVIDER PROGRESS NOTE ---
Subjective - Prog Note Date Prog Note Date: 06/14/17 - Subjective Pt reports feeling: Improved Subjective: Pt state she feel good. no fever, chill, CP, SOB. Pt told me she want to see another hospital orthopedics as the second opinion. Dr. Kang report pt want a second opinion from other orthopedics of different hospital. Dr. Howard Roman report pt declined to do EGD in [facility]. will call to transfer pt Current Medications - Current Medications Current Medications: Active Medications Acetaminophen (Tylenol) 650 mg PO Q4HR PRN PRN Reason: Pain 1 to 4 Albuterol () 2.5 mg INH RTQ4H PRN PRN Reason: Wheezing Last Admin: 06/15/17 07:01 Dose: 2.5 mg Aspirin (St Rudi Aspirin) 81 mg PO DAILY [facility] Last Admin: 06/15/17 08:14 Dose: 81 mg Atorvastatin Calcium (Lipitor) 20 mg PO QPM [facility] Last Admin: 06/14/17 21:24 Dose: 20 mg Cholecalciferol (Vitamin D3) 2,000 unit PO DAILY [facility] Last Admin: 06/15/17 08:12 Dose: 2,000 unit Diltiazem HCl (Cardizem Cd) 120 mg PO DAILY [facility] Last Admin: 06/15/17 08:13 Dose: 120 mg Ferrous Sulfate (Feosol) 325 mg PO BIDWM [facility] Last Admin: 06/15/17 08:13 Dose: 325 mg Furosemide (Lasix) 40 mg PO DAILY [facility] Last Admin: 06/15/17 08:14 Dose: 40 mg Gabapentin (Neurontin) 200 mg PO TID [facility] Last Admin: 06/15/17 06:06 Dose: 200 mg Vancomycin HCl 1 gm/Vancomycin HCl 500 mg/ Sodium Chloride 500 mls @ 250 mls/ hr IV Q24H [facility] Last Infusion: 06/14/17 21:17 Dose: Infused Piperacillin Sod/Tazobactam (Sod 2.25 gm/ Sodium Chloride) 100 mls @ 200 mls/ hr IV Q6H [facility] Last Infusion: 06/15/17 11:42 Dose: Infused Insulin Aspart (Novolog) 1 - 5 unit SUBQ 0800,1200,1700,2100 [facility] PRN Reason: Protocol Last Admin: 06/15/17 11:29 Dose: 2 unit Insulin Glargine (Lantus Solostar) 80 unit SUBQ DAILY [facility] Last Admin: 06/15/17 08:15 Dose: 80 unit Insulin Glargine (Lantus Solostar) 40 unit SUBQ QPM [facility] Last Admin: 06/14/17 21:25 Dose: 40 unit Levothyroxine Sodium (Synthroid) 25 mcg PO QDAC [facility] Last Admin: 06/15/17 06:06 Dose: 25 mcg Metoprolol Tartrate (Lopressor) 50 mg PO BID [facility] Last Admin: 06/15/17 08:13 Dose: 50 mg Multi-Ingredient Ointment (Zinc Oxide) 1 applic TOP PRN PRN PRN Reason: Skin Care Stop: 06/23/17 17:33 Nystatin (Mycostatin Cream) 1 applic TOP BID [facility] Last Admin: 06/14/17 21:24 Dose: 1 strip Nystatin (Nystop) 1 applic TOP BID [facility] Last Admin: 06/14/17 21:24 Dose: 1 applic Ondansetron HCl (Zofran Inj) 4 mg IVP Q6HR PRN PRN Reason: Nausea / Vomiting Pantoprazole Sodium (Protonix) 40 mg PO QDAC [facility] Last Admin: 06/15/17 06:05 Dose: 40 mg Polyethylene Glycol (Miralax) 17 gm PO DAILY [facility] Last Admin: 06/15/17 08:18 Dose: Not Given Sodium Chloride (Normal Saline Flush 0.9%) 10 ml IVP PRN PRN PRN Reason: NEEDED PER PROVIDER ORDERS Last Admin: 06/15/17 12:08 Dose: 10 ml Sodium Chloride (Normal Saline Flush 0.9%) 10 ml IVP 0100,0900,1700 [facility] Last Admin: 06/15/17 08:21 Dose: 10 ml Insulin Glargine [Lantus Solostar] 80 units SQ DAILY 02/14/14 Lovastatin 40 mg PO QPM 02/14/14 Metoprolol Tartrate 50 mg PO BID 02/14/14 Gabapentin [Neurontin] 200 mg PO Q8H 05/15/16 Levothyroxine [Synthroid] 25 mcg PO DAILY 05/15/16 Albuterol 1.5 ml NEB BID 09/10/16 Cholecalciferol (Vitamin D3) [Vitamin D3] 2,000 units PO DAILY 09/10/16 Diltiazem HCl [Diltiazem ER] 120 mg PO DAILY 09/10/16 Ferrous Sulfate 325 mg PO DAILY 09/10/16 Furosemide 40 mg PO DAILY 09/10/16 Insulin Aspart [Novolog Flexpen] 15 units SQ AC 09/10/16 Insulin Glargine [Lantus Solostar] 90 units SQ QPM 09/10/16 Lisinopril 5 mg PO DAILY 09/10/16 Acetaminophen [Tylenol Extra Strength] 500 mg PO Q6H PRN 06/13/17 Aspirin Chewable [St Rudi Aspirin] 81 mg PO DAILY 06/13/17 Objective - Vital Signs/Intake & Output Reviewed Vital Signs: Yes Vital Signs: Vital Signs x48h Temp Pulse Resp BP Pulse Ox 06/14/17 12:51 36.3 C L 101 H 16 136/74 H 96 Intake & Output: Intake & Output 06/11/17 06/12/17 06/13/17 06/14/17 23:59 23:59 23:59 23:59 Intake Total 900 2889.75 Output Total 800 1600 Balance 100 1289.75 - Objective General Appearance: positive: No acute distress, Alert. negative: Lethargic Eyes Bilateral: positive: Normal inspection, PERRL, No lid inflammation, Conjunctivae nml ENT: positive: ENT inspection nml, Pharynx nml, No signs of dehydration. negative: Purulent nasal drainage, Pharyngeal erythema, Oral lesions Neck: positive: Nml inspection, Thyroid nml, No JVD, Trachea midline. negative : Thyromegaly, Lymphadenopathy (R), Lymphadenopathy (L), Stiff neck, Carotid bruit, Swelling/bruising, Tracheal deviation Respiratory: positive: Chest non-tender, No respiratory distress, Breath sounds nml. negative: Wheezes, Rales, Rhonchi Cardiovascular: positive: Regular rate & rhythm, No murmur, No gallop. negative : Irregularly irregular, Extrasystoles, Tachycardia, Bradycardia, JVD present, Systolic murmur, Diastolic murmur Peripheral Pulses: 2+ Radial (R), 2+ Radial (L), 2+ Dorsalis pedis (R), 2+ Dorsalis pedis (L) Abdomen: positive: Non-tender, No organomegaly, Nml bowel sounds, No distention. negative: Tenderness, Guarding, Rebound Back: positive: Nml inspection. negative: CVA tenderness (R), CVA tenderness (L ) Skin: positive: Warm, Dry. negative: Pallor Extremities: positive: Pedal edema. negative: Calf tenderness, Joint swelling, Ellen's sign/cords Neurologic/Psychiatric: positive: Oriented x3, Sensation nml, Mood/affect nml. negative: Sensory loss, Facial droop, Slurred/abnml speech, Depressed mood/ affect - Lab Results Fish Bones: 06/15/17 05:35 06/15/17 05:35 Other Labs: Lab Results x24hrs 06/14/17 06/14/17 06/14/17 Range/Units 09:07 09:07 09:07 WBC (4.8-10.8) x10^3/uL RBC (4.20-5.40) 10^6/uL Hgb (12.0-16.0) g/dL Hct (37.0-47.0) % MCV (81.0-99.0) fL MCH (27.0-31.0) pg MCHC (32.0-36.0) g/dL RDW (12.0-15.0) % Plt Count (130-450) 10^3/uL MPV (7.9-10.8) fL Neut # (1.5-6.6) 10^3/uL Lymph # (1.5-3.5) 10^3/uL Lane # (0.0-1.0) 10^3/uL Eos # (0.0-0.7) 10^3/uL Baso # (0.0-0.1) 10^3/uL Absolute Nucleated RBC x10^3/uL Nucleated RBC % /100WBC PT 12.6 (9.9-12.6) secs INR 1.1 (0.8-1.2) Sodium (135-145) mmol/L Potassium (3.5-5.0) mmol/L Chloride (101-111) mmol/L Carbon Dioxide (21-32) mmol/L Anion Gap (6-13) BUN (6-20) mg/dL Creatinine (0.4-1.0) mg/dL Estimated GFR (MDRD) (>89) Glucose (70-100) mg/dL Calcium (8.5-10.3) mg/dL Magnesium (1.7-2.8) mg/dL Total Bilirubin (0.2-1.0) mg/dL AST (10-42) IU/L ALT (10-60) IU/L Alkaline Phosphatase (42-121) IU/L B-Natriuretic Peptide 572 H (5-100) pg/mL Total Protein (6.7-8.2) g/dL Albumin (3.2-5.5) g/dL Globulin (2.1-4.2) g/dL Albumin/Globulin Ratio (1.0-2.2) TSH 5.52 (0.34-5.60) uIU/mL 06/14/17 06/14/17 06/13/17 Range/Units 09:07 09:07 20:02 WBC 10.8 (4.8-10.8) x10^3/uL RBC 3.71 L (4.20-5.40) 10^6/uL Hgb 8.5 L 6.6 L* (12.0-16.0) g/dL Hct 27.5 L 22.8 L (37.0-47.0) % MCV 74.2 L (81.0-99.0) fL MCH 23.0 L (27.0-31.0) pg MCHC 31.0 L (32.0-36.0) g/dL RDW 18.7 H (12.0-15.0) % Plt Count 338 (130-450) 10^3/uL MPV 5.9 L (7.9-10.8) fL Neut # 9.0 H (1.5-6.6) 10^3/uL Lymph # 1.0 L (1.5-3.5) 10^3/uL Lane # 0.4 (0.0-1.0) 10^3/uL Eos # 0.3 (0.0-0.7) 10^3/uL Baso # 0.1 (0.0-0.1) 10^3/uL Absolute Nucleated RBC 0.03 x10^3/uL Nucleated RBC % 0.3 /100WBC PT (9.9-12.6) secs INR (0.8-1.2) Sodium 138 (135-145) mmol/L Potassium 3.9 (3.5-5.0) mmol/L Chloride 98 L (101-111) mmol/L Carbon Dioxide 30 (21-32) mmol/L Anion Gap 10.0 (6-13) BUN 41 H (6-20) mg/dL Creatinine 1.5 H (0.4-1.0) mg/dL Estimated GFR (MDRD) 34 L (>89) Glucose 162 H (70-100) mg/dL Calcium 8.2 L (8.5-10.3) mg/dL Magnesium 2.2 (1.7-2.8) mg/dL Total Bilirubin 0.7 (0.2-1.0) mg/dL AST 12 (10-42) IU/L ALT 13 (10-60) IU/L Alkaline Phosphatase 112 (42-121) IU/L B-Natriuretic Peptide (5-100) pg/mL Total Protein 7.1 (6.7-8.2) g/dL Albumin 2.9 L (3.2-5.5) g/dL Globulin 4.2 (2.1-4.2) g/dL Albumin/Globulin Ratio 0.7 L (1.0-2.2) TSH (0.34-5.60) uIU/mL ABX Reporting Has patient been on IV antibiotics over the past 48 hours?: Yes Assessment/Plan - Problem List (1) Diabetic foot ulcer Impression: Conclusion/Plan: would culture is pending, will follow up continue zosyn and vancomycin, until culture study was done order MRI, will follow up follow up wound and blood culture Orthopedics surgeon consider high risk surgery, pt also request transfer to another facility. will call for transfer pt to other acute hospital pt report infection has been couples of months. The infection is located at left foot lateral. Xray reveals likely osteomyelitis consult with orthopedics, follow up zosyn and vancomycin Lactic acid blood and would culture, follow up gently IVF daily lab, and vital monitor order ECHO, follow up Pt has BMI 47.9. Royal criteria of cardiac risk index is 6.6% pt does not desire for orthopedic surgery yet, state" think about for couple of days." (2) GI bleed Conclusion/Plan: transfusion of two unit blood pt decline to do EGD or colonoscopy in [facility] will call to transfer pt to another acute hospital Positive blood rectal test in ER. HGB 7.1. 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 It is more likely a cellulitis treat with Zosyn and Vancomycin blood culture, follow up gently IVF daily lab and vital monitor (4) Acute type 2 diabetes mellitus with manifestations Conclusion/Plan: resume home insulin schedule slide scale, ACHS check A1C hypoglycemia protocol (5) Obesities, morbid Conclusion/Plan: encourage pt loss of weight (6) Anemia Conclusion/Plan: transfusion of two unit blood, follow up pt request to be transferred to other hospital and she is high risk for EGD or colonoscopy per surgeon's report pt has chronic anemia, has been Iron pill. but pt has been medical non- compliance, as pt state she stop it by her self. Also it is positive recta bleeding test. It may combine with chronic CKD, iron deficiency, medical non- compliance, DM2 and acute blood loss. Iron anemia study resume home Iron schedule follow surgery for GI bleeding (7) Renal insufficiency Conclusion/Plan: function is reduce, it may be caused by Vancomycin D/C vancomycin and Unisyn chronic kidney disease, will gently IVF, hydration to pt daily lab, vital monitor (8) HTN (hypertension) Conclusion/Plan: stable, resume home BP medication vital monitor (9) COPD (chronic obstructive pulmonary disease) Conclusion/Plan: stable, no acute events. resume INH treatment vital monitor (10) Hx of deep venous thrombosis Conclusion/Plan: Order US for R/O DVT, follow up stop Heparin for DVT prophylaxis due to GI bleeding SCD for right leg (11) Medical non-compliance Conclusion/Plan: pt report to me she just stopped her medication by her self consult and advise pt medical-compliance (12) bacteremia pt is positive Streptococcus Anginosus Unisyn Qualifiers: Diabetic foot ulcer location: midfoot Diabetes mellitus type: type 2 Laterality: left Non-pressure ulcer stage: limited to breakdown of skin Qualified Code(s): E11.621 - Type 2 diabetes mellitus with foot ulcer; L97.421 - Non-pressure chronic ulcer of left heel and midfoot limited to breakdown of skin; L97.421 - Non-pressure chronic ulcer of left heel and midfoot limited to breakdown of skin; L97.421 - Non-pressure chronic ulcer of left heel and midfoot limited to breakdown of skin; L97.421 - Non-pressure chronic ulcer of left heel and midfoot limited to breakdown of skin (3) Cellulitis Qualifiers: Site of cellulitis: extremity Site of cellulitis of extremity: lower extremity Laterality: left Qualified Code(s): L03.116 - Cellulitis of left lower limb (6) Anemia Qualifiers: Anemia type: unspecified type Qualified Code(s): D64.9 - Anemia, unspecified
[2017-06-14 17:39] LABS: HGB - HEMOGLOBIN 8.7 g/dL (12.0-16.0)
--- NOTE | 2017-06-14 18:17 | MRI Preliminary Report ---
Exam: MRI FOOT LT W/O IMPRESSION: 1. Osteomyelitis is seen at the proximal lateral aspect of the fifth proximal metatarsal, associated with ulceration/skin defect of lateral midfoot. 2. No fractures or 3. Extensive subcutaneous edema and swelling over the dorsum of the foot. Extensive fatty atrophy of the intrinsic muscles of the foot. [facility] MUSCULOSKELETAL [facility]IOLOGY SECTION SITE ID: [id number]
[2017-06-14] MEDS: ATORVASTATIN 10 MG TABLET PO SCH (21:24)
--- NOTE | 2017-06-14 22:00 | MRI Report ---
EXAM: LEFT MIDFOOT MRI WITHOUT CONTRAST EXAM DATE: 06/14/2017 04:56 PM. CLINICAL HISTORY: Rule out osteomyelitis of left mid foot. COMPARISON: None. TECHNIQUE: Multiplanar, multisequence T1-weighted and fluid-sensitive sequences of the midfoot withou t contrast. Other: None. FINDINGS: Bones: The proximal lateral aspect of the fifth metatarsal shows low signal on T1, high signal on T2. This is immediately adjacent to a focal skin defect/ulceration. Series 1301 image 20, series 601 cathryn ge 4, series 901 image 4. No other similar features are seen in the bones of the foot. Articular Cartilage: Some global thinning of the articular cartilage of the midfoot. Ligaments: The visualized intertarsal, intermetatarsal, and tarsometatarsal ligaments are intact. Thi s includes the Lisfranc ligament. The visualized collateral ligaments are intact. No subluxation or d islocation of the midfoot. Tendons: The flexor and extensor tendons are unremarkable. Musculature: Extensive fatty atrophy is seen in the intrinsic muscles of the midfoot. Series 701 imag e 8. Other: No effusions. Visualized portions of the tarsal tunnel appear somewhat edematous as well. No i ntermetatarsal bursitis. Extensive subcutaneous edema and swelling. No drainable fluid collections or abscesses. IMPRESSION: 1. Osteomyelitis is seen at the proximal lateral aspect of the fifth proximal metatarsal, associated with ulceration/skin defect at the lateral midfoot. 2. No fractures. 3. Extensive subcutaneous edema and swelling over the dorsum of the foot. Extensive fatty atrophy of the intrinsic muscles of the foot. [facility] MUSCULOSKELETAL RADIOLOGY SECTION Referring Provider Line: [phone] SITE ID: [id number]
[2017-06-15] MEDS: PIPERACILLIN/TAZOBACTAM 2.25 GM in SODIUM CHLORIDE 0.9% MINIBAG 100 ML IV SCH ×2 (05:31→11:03)
[2017-06-15 05:52] LABS: BASOPHILS # (AUTO) 0.1 10^3/uL (0.0-0.1); EOSINOPHILS # (AUTO) 0.4 10^3/uL (0.0-0.7); EOSINOPHILS % (AUTO) 2.9 %; HGB - HEMOGLOBIN 8.2 g/dL (12.0-16.0); LYMPHOCYTES # (AUTO) 1.3 10^3/uL (1.5-3.5); LYMPHOCYTES % (AUTO) 10.2 %; MEAN CORPUSCULAR HGB CONC 29.1 g/dL (32.0-36.0); MEAN CORPUSCULAR VOLUME 75.8 fL (81.0-99.0); MEAN PLATELET VOLUME 6.1 fL (7.9-10.8); MONOCYTES # (AUTO) 0.6 10^3/uL (0.0-1.0); NEUTROPHILS # (AUTO) 10.3 10^3/uL (1.5-6.6); NEUTROPHILS % (AUTO) 80.9 %; PLT - PLATELET COUNT 371 10^3/uL (130-450); RED BLOOD COUNT 3.71 10^6/uL (4.20-5.40); RED CELL DISTRIBUTION WIDTH 19.1 % (12.0-15.0); WHITE BLOOD COUNT 12.7 x10^3/uL (4.8-10.8)
[2017-06-15 06:05] LABS: ALBUMIN 2.8 g/dL (3.2-5.5); ALBUMIN/GLOBULIN RATIO 0.7 (1.0-2.2); BILIRUBIN,TOTAL 0.6 mg/dL (0.2-1.0); CALCIUM 8.3 mg/dL (8.5-10.3); CREATININE 1.8 mg/dL (0.4-1.0); TOTAL PROTEIN 6.9 g/dL (6.7-8.2)
[2017-06-15] MEDS: PANTOPRAZOLE 40 MG TABLET PO SCH (06:05)
[2017-06-15] MEDS: LEVOTHYROXINE 25 MCG TABLET PO SCH (06:06)
[2017-06-15] MEDS: GABAPENTIN 100 MG CAPSULE PO SCH ×3 (06:06→21:03)
[2017-06-15] MEDS: ALBUTEROL NEB 2.5 MG/3 ML INH PRN (07:01)
[2017-06-15] MEDS: CHOLECALCIFEROL 1,000 UNIT TABLET PO SCH (08:12)
[2017-06-15] MEDS: METOPROLOL TARTRATE 50 MG TABLET PO SCH ×2 (08:13→21:02)
[2017-06-15] MEDS: FERROUS SULFATE 325 MG TABLET PO SCH ×2 (08:13→16:19)
[2017-06-15] MEDS: diltiaZEM CD 120 MG CAPSULE PO SCH (08:13)
[2017-06-15] MEDS: ASPIRIN CHEW 81 MG TABLET PO SCH (08:14)
[2017-06-15] MEDS: FUROSEMIDE 20 MG TABLET PO SCH (08:14)
[2017-06-15] MEDS: INSULIN GLARGINE 300 UNIT/3 ML PEN SUBQ SCH ×2 (08:15→21:05)
[2017-06-15] MEDS: POLYETHYLENE GLYCOL 3350 17 GM PACKET PO SCH (08:18)
[2017-06-15] MEDS: INSULIN ASPART 300 UNIT/3 ML PEN SUBQ SCH ×4 (08:18→21:04)
[2017-06-15] MEDS: SODIUM CHLORIDE FLUSH 0.9% 10 ML SYRINGE IVP SCH ×3 (08:21→23:51)
[2017-06-15] MEDS: SODIUM CHLORIDE FLUSH 0.9% 10 ML SYRINGE IVP PRN (12:08)
[2017-06-15] MEDS: NYSTATIN CREAM 15 GM TUBE TOP SCH ×2 (13:45→21:05)
[2017-06-15] MEDS: NYSTATIN POWDER 15 GM TOP SCH ×2 (13:45→21:05)
--- NOTE | 2017-06-15 16:52 | PROVIDER PROGRESS NOTE ---
Subjective - Prog Note Date Prog Note Date: 06/15/17 - Subjective Pt reports feeling: No change Subjective: Pt state she feel good, no other complaints. She still request to be transferred to other hospital for further intervention. I called [facility], there is no bed available for pt. I called , they called me back and stated pt may have to wait for 2-3 days for availability, and advise me to call [place] I called [place], they asked me my phone number and state they will call me back. [facility] called me back. The orthopedics in [place] stated this is not the urgent matter to be transferred. GI doctor stated the similar, not urgent matter to be transferred. Therefore, pt may have the financial obligation to pay all the transfer and treatments. I discussed this situation with pt. Pt refused to be transferred because of this possible financial responsibility. Be clearly, I with today nurse Jo-Ann to see pt and tried to know what pt's decision is for her further care. Pt clearly stated she did not want to have EGD or colonoscopy, or any surgery to her foot at this time hospitalization. Current Medications - Current Medications Current Medications: Active Medications Acetaminophen (Tylenol) 650 mg PO Q4HR PRN PRN Reason: Pain 1 to 4 Albuterol () 2.5 mg INH RTQ4H PRN PRN Reason: Wheezing Last Admin: 06/15/17 07:01 Dose: 2.5 mg Aspirin ([facility] Aspirin) 81 mg PO DAILY [facility] Last Admin: 06/15/17 08:14 Dose: 81 mg Atorvastatin Calcium (Lipitor) 20 mg PO QPM [facility] Last Admin: 06/14/17 21:24 Dose: 20 mg Cholecalciferol (Vitamin D3) 2,000 unit PO DAILY [facility] Last Admin: 06/15/17 08:12 Dose: 2,000 unit Diltiazem HCl (Cardizem Cd) 120 mg PO DAILY [facility] Last Admin: 06/15/17 08:13 Dose: 120 mg Ferrous Sulfate (Feosol) 325 mg PO BIDWM [facility] Last Admin: 06/15/17 16:19 Dose: 325 mg Furosemide (Lasix) 40 mg PO DAILY [facility] Last Admin: 06/15/17 08:14 Dose: 40 mg Gabapentin (Neurontin) 200 mg PO TID [facility] Last Admin: 06/15/17 13:43 Dose: 200 mg Ampicillin Sodium/Sulbactam (Sodium 1.5 gm/ Sodium Chloride) 100 mls @ 200 mls/ hr IV Q6HR [facility] Insulin Aspart (Novolog) 1 - 5 unit SUBQ 0800,1200,1700,2100 [facility] PRN Reason: Protocol Last Admin: 06/15/17 16:21 Dose: 2 unit Insulin Glargine (Lantus Solostar) 80 unit SUBQ DAILY [facility] Last Admin: 06/15/17 08:15 Dose: 80 unit Insulin Glargine (Lantus Solostar) 40 unit SUBQ QPM [facility] Last Admin: 06/14/17 21:25 Dose: 40 unit Levothyroxine Sodium (Synthroid) 25 mcg PO QDAC [facility] Last Admin: 06/15/17 06:06 Dose: 25 mcg Metoprolol Tartrate (Lopressor) 50 mg PO BID [facility] Last Admin: 06/15/17 08:13 Dose: 50 mg Multi-Ingredient Ointment (Zinc Oxide) 1 applic TOP PRN PRN PRN Reason: Skin Care Stop: 06/23/17 17:33 Nystatin (Mycostatin Cream) 1 applic TOP BID [facility] Last Admin: 06/15/17 13:45 Dose: 1 strip Nystatin (Nystop) 1 applic TOP BID [facility] Last Admin: 06/15/17 13:45 Dose: Not Given Ondansetron HCl (Zofran Inj) 4 mg IVP Q6HR PRN PRN Reason: Nausea / Vomiting Pantoprazole Sodium (Protonix) 40 mg PO QDAC [facility] Last Admin: 06/15/17 06:05 Dose: 40 mg Polyethylene Glycol (Miralax) 17 gm PO DAILY [facility] Last Admin: 06/15/17 08:18 Dose: Not Given Sodium Chloride (Normal Saline Flush 0.9%) 10 ml IVP PRN PRN PRN Reason: NEEDED PER PROVIDER ORDERS Last Admin: 06/15/17 12:08 Dose: 10 ml Sodium Chloride (Normal Saline Flush 0.9%) 10 ml IVP 0100,0900,1700 [facility] Last Admin: 06/15/17 16:21 Dose: 10 ml Insulin Glargine [Lantus Solostar] 80 units SQ DAILY 02/14/14 Lovastatin 40 mg PO QPM 02/14/14 Metoprolol Tartrate 50 mg PO BID 02/14/14 Gabapentin [Neurontin] 200 mg PO Q8H 05/15/16 Levothyroxine [Synthroid] 25 mcg PO DAILY 05/15/16 Albuterol 1.5 ml NEB BID 09/10/16 Cholecalciferol (Vitamin D3) [Vitamin D3] 2,000 units PO DAILY 09/10/16 Diltiazem HCl [Diltiazem ER] 120 mg PO DAILY 09/10/16 Ferrous Sulfate 325 mg PO DAILY 09/10/16 Furosemide 40 mg PO DAILY 09/10/16 Insulin Aspart [Novolog Flexpen] 15 units SQ AC 09/10/16 Insulin Glargine [Lantus Solostar] 90 units SQ QPM 09/10/16 Lisinopril 5 mg PO DAILY 09/10/16 Acetaminophen [Tylenol Extra Strength] 500 mg PO Q6H PRN 06/13/17 Aspirin Chewable [[facility] Aspirin] 81 mg PO DAILY 06/13/17 Objective - Vital Signs/Intake & Output Reviewed Vital Signs: Yes Vital Signs: Vital Signs x48h Temp Pulse Resp BP Pulse Ox 06/15/17 15:43 36.6 C 118 H 20 113/74 92 06/15/17 12:46 36.3 C L 115 H 16 103/49 L 92 Intake & Output: Intake & Output 06/12/17 06/13/17 06/14/17 06/15/17 23:59 23:59 23:59 23:59 Intake Total 900 4279.75 860 Output Total 800 2600 Balance 100 1679.75 860 - Objective General Appearance: positive: No acute distress, Alert. negative: Lethargic Eyes Bilateral: positive: Normal inspection, PERRL, No lid inflammation, Conjunctivae nml ENT: positive: ENT inspection nml, Pharynx nml, No signs of dehydration. negative: Purulent nasal drainage, Pharyngeal erythema, Oral lesions Neck: positive: Nml inspection, Thyroid nml, No JVD, Trachea midline. negative : Thyromegaly, Lymphadenopathy (R), Lymphadenopathy (L), Stiff neck, Carotid bruit, Swelling/bruising, Tracheal deviation Respiratory: positive: Chest non-tender, No respiratory distress, Breath sounds nml. negative: Wheezes, Rales, Rhonchi Cardiovascular: positive: Regular rate & rhythm, No murmur, No gallop. negative : Irregularly irregular, Extrasystoles, Tachycardia, Bradycardia, JVD present, Systolic murmur, Diastolic murmur Peripheral Pulses: 2+ Radial (R), 2+ Radial (L), 2+ Dorsalis pedis (R), 2+ Dorsalis pedis (L) Abdomen: positive: Non-tender, No organomegaly, Nml bowel sounds. negative: Tenderness, Guarding, Rebound Back: positive: Nml inspection. negative: CVA tenderness (R), CVA tenderness (L ) Skin: positive: No rash, Warm, Dry. negative: Cyanosis, Diaphoresis, Pallor Extremities: positive: Non-tender, Full ROM, Pedal edema. negative: Calf tenderness, Joint swelling, Ellen's sign/cords Neurologic/Psychiatric: positive: Oriented x3, Sensation nml, Mood/affect nml. negative: Sensory loss, Facial droop, Slurred/abnml speech, Depressed mood/ affect - Lab Results Fish Bones: 06/15/17 05:35 06/15/17 05:35 Other Labs: Lab Results x24hrs 06/15/17 06/15/17 06/14/17 Range/Units 05:35 05:35 17:27 WBC 12.7 H (4.8-10.8) x10^3/uL RBC 3.71 L (4.20-5.40) 10^6/uL Hgb 8.2 L 8.7 L (12.0-16.0) g/dL Hct 28.1 L 29.9 L (37.0-47.0) % MCV 75.8 L (81.0-99.0) fL MCH 22.0 L (27.0-31.0) pg MCHC 29.1 L (32.0-36.0) g/dL RDW 19.1 H (12.0-15.0) % Plt Count 371 (130-450) 10^3/uL MPV 6.1 L (7.9-10.8) fL Neut # 10.3 H (1.5-6.6) 10^3/uL Lymph # 1.3 L (1.5-3.5) 10^3/uL Early # 0.6 (0.0-1.0) 10^3/uL Eos # 0.4 (0.0-0.7) 10^3/uL Baso # 0.1 (0.0-0.1) 10^3/uL Absolute Nucleated RBC 0.05 x10^3/uL Nucleated RBC % 0.4 /100WBC Sodium 140 (135-145) mmol/L Potassium 4.4 (3.5-5.0) mmol/L Chloride 99 L (101-111) mmol/L Carbon Dioxide 32 (21-32) mmol/L Anion Gap 9.0 (6-13) BUN 45 H (6-20) mg/dL Creatinine 1.8 H (0.4-1.0) mg/dL Estimated GFR (MDRD) 28 L (>89) Glucose 128 H (70-100) mg/dL Calcium 8.3 L (8.5-10.3) mg/dL Total Bilirubin 0.6 (0.2-1.0) mg/dL AST 11 (10-42) IU/L ALT 13 (10-60) IU/L Alkaline Phosphatase 100 (42-121) IU/L Total Protein 6.9 (6.7-8.2) g/dL Albumin 2.8 L (3.2-5.5) g/dL Globulin 4.1 (2.1-4.2) g/dL Albumin/Globulin Ratio 0.7 L (1.0-2.2) ABX Reporting Has patient been on IV antibiotics over the past 48 hours?: Yes Assessment/Plan - Problem List (1) Diabetic foot ulcer Impression: Impression: MRI reveals osteomyelitis. I discussed the result with pt. Pt still request to be transferred to other hospital for second opinion and further intervention. discuss with Dr. Kang. agree the plan to be transferred to other hospital. pt is high risk to do BKA continue antibiotics, wound culture is pending. continue lab, and vital monitor would culture is pending, will follow up continue zosyn and vancomycin, until culture study was done order MRI, will follow up follow up wound and blood culture Orthopedics surgeon consider high risk surgery, pt also request transfer to another facility. will call for transfer pt to other acute hospital pt report infection has been couples of months. The infection is located at left foot lateral. Xray reveals likely osteomyelitis consult with orthopedics, follow up zosyn and vancomycin Lactic acid blood and would culture, follow up gently IVF daily lab, and vital monitor order ECHO, follow up Pt has BMI 47.9. Royal criteria of cardiac risk index is 6.6% pt does not desire for orthopedic surgery yet, state" think about for couple of days." (2) GI bleed Conclusion/Plan: continue H&H pt declined to have EGD or colonoscopy in [facility], request to be transferred to other hospital for further intervention continue iron continue lab and vital monitor transfusion of two unit blood pt decline to do EGD or colonoscopy in [facility] will call to transfer pt to another acute hospital Positive blood rectal test in ER. HGB 7.1. 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 It is more likely a cellulitis treat with Zosyn and Vancomycin blood culture, follow up gently IVF daily lab and vital monitor (4) Acute type 2 diabetes mellitus with manifestations Conclusion/Plan: resume home insulin schedule slide scale, ACHS check A1C hypoglycemia protocol (5) Obesities, morbid Conclusion/Plan: encourage pt loss of weight (6) Anemia Conclusion/Plan: transfusion of two unit blood, follow up pt request to be transferred to other hospital and she is high risk for EGD or colonoscopy per surgeon's report pt has chronic anemia, has been Iron pill. but pt has been medical non- compliance, as pt state she stop it by her self. Also it is positive recta bleeding test. It may combine with chronic CKD, iron deficiency, medical non- compliance, DM2 and acute blood loss. Iron anemia study resume home Iron schedule follow surgery for GI bleeding (7) Renal insufficiency Conclusion/Plan: function is reduce, it may be caused by Vancomycin D/C vancomycin add Unisyn according to blood culture study chronic kidney disease, will gently IVF, hydration to pt daily lab, vital monitor (8) HTN (hypertension) Conclusion/Plan: stable, resume home BP medication vital monitor (9) COPD (chronic obstructive pulmonary disease) Conclusion/Plan: stable, no acute events. resume INH treatment vital monitor (10) Hx of deep venous thrombosis Conclusion/Plan: no DVT Order US for R/O DVT, follow up stop Heparin for DVT prophylaxis due to GI bleeding SCD for right leg (11) Medical non-compliance Conclusion/Plan: pt report to me she just stopped her medication by her self consult and advise pt medical-compliance (12) bacteremia pt is positive Streptococcus Anginosus Unisyn Qualifiers: Diabetic foot ulcer location: midfoot Diabetes mellitus type: type 2 Laterality: left Non-pressure ulcer stage: limited to breakdown of skin Qualified Code(s): E11.621 - Type 2 diabetes mellitus with foot ulcer; L97.421 - Non-pressure chronic ulcer of left heel and midfoot limited to breakdown of skin; L97.421 - Non-pressure chronic ulcer of left heel and midfoot limited to breakdown of skin; L97.421 - Non-pressure chronic ulcer of left heel and midfoot limited to breakdown of skin; L97.421 - Non-pressure chronic ulcer of left heel and midfoot limited to breakdown of skin (3) Cellulitis Qualifiers: Site of cellulitis: extremity Site of cellulitis of extremity: lower extremity Laterality: left Qualified Code(s): L03.116 - Cellulitis of left lower limb (6) Anemia Qualifiers: Anemia type: unspecified type Qualified Code(s): D64.9 - Anemia, unspecified
[2017-06-15] MEDS: AMPICILLIN/SULBACTAM 1.5 GM in SODIUM CHLORIDE 0.9% MINIBAG 100 ML IV SCH ×2 (17:59→23:51)
[2017-06-15 20:13] LABS: HGB - HEMOGLOBIN 8.1 g/dL (12.0-16.0)
[2017-06-15] MEDS: ATORVASTATIN 10 MG TABLET PO SCH (21:02)
[2017-06-16] MEDS: SODIUM CHLORIDE FLUSH 0.9% 10 ML SYRINGE IVP PRN ×2 (02:03→05:04)
[2017-06-16] MEDS: AMPICILLIN/SULBACTAM 1.5 GM in SODIUM CHLORIDE 0.9% MINIBAG 100 ML IV SCH ×2 (05:03→12:31)
[2017-06-16 05:24] LABS: BASOPHILS # (AUTO) 0.1 10^3/uL (0.0-0.1); BASOPHILS % (AUTO) 1.3 %; EOSINOPHILS # (AUTO) 0.4 10^3/uL (0.0-0.7); EOSINOPHILS % (AUTO) 3.6 %; LYMPHOCYTES # (AUTO) 1.6 10^3/uL (1.5-3.5); LYMPHOCYTES % (AUTO) 14.2 %; MEAN CORPUSCULAR HEMOGLOBIN 21.9 pg (27.0-31.0); MEAN CORPUSCULAR HGB CONC 29.6 g/dL (32.0-36.0); MEAN CORPUSCULAR VOLUME 74.1 fL (81.0-99.0); MEAN PLATELET VOLUME 6.1 fL (7.9-10.8); MONOCYTES # (AUTO) 0.6 10^3/uL (0.0-1.0); MONOCYTES % (AUTO) 5.2 %; NEUTROPHILS # (AUTO) 8.4 10^3/uL (1.5-6.6); NEUTROPHILS % (AUTO) 75.7 %; PLT - PLATELET COUNT 388 10^3/uL (130-450); RED BLOOD COUNT 3.66 10^6/uL (4.20-5.40); RED CELL DISTRIBUTION WIDTH 19.6 % (12.0-15.0); WHITE BLOOD COUNT 11.1 x10^3/uL (4.8-10.8)
[2017-06-16 05:32] LABS: ALBUMIN 2.9 g/dL (3.2-5.5); ALBUMIN/GLOBULIN RATIO 0.7 (1.0-2.2); BILIRUBIN,TOTAL 0.8 mg/dL (0.2-1.0); CALCIUM 8.3 mg/dL (8.5-10.3); TOTAL PROTEIN 7.1 g/dL (6.7-8.2)
[2017-06-16] MEDS: GABAPENTIN 100 MG CAPSULE PO SCH (06:24)
[2017-06-16] MEDS: LEVOTHYROXINE 25 MCG TABLET PO SCH (06:24)
[2017-06-16] MEDS: PANTOPRAZOLE 40 MG TABLET PO SCH (06:24)
[2017-06-16] MEDS: INSULIN ASPART 300 UNIT/3 ML PEN SUBQ SCH ×2 (08:47→12:27)
[2017-06-16] MEDS: FUROSEMIDE 20 MG TABLET PO SCH (08:56)
[2017-06-16] MEDS: METOPROLOL TARTRATE 50 MG TABLET PO SCH (08:56)
[2017-06-16] MEDS: diltiaZEM CD 120 MG CAPSULE PO SCH (08:56)
[2017-06-16] MEDS: CHOLECALCIFEROL 1,000 UNIT TABLET PO SCH (08:56)
[2017-06-16] MEDS: ASPIRIN CHEW 81 MG TABLET PO SCH (08:56)
[2017-06-16] MEDS: FERROUS SULFATE 325 MG TABLET PO SCH (08:56)
[2017-06-16] MEDS: NYSTATIN POWDER 15 GM TOP SCH (08:57)
[2017-06-16] MEDS: NYSTATIN CREAM 15 GM TUBE TOP SCH (08:57)
[2017-06-16] MEDS: SODIUM CHLORIDE FLUSH 0.9% 10 ML SYRINGE IVP SCH (08:57)
[2017-06-16] MEDS: INSULIN GLARGINE 300 UNIT/3 ML PEN SUBQ SCH (08:58)
[2017-06-16] MEDS: POLYETHYLENE GLYCOL 3350 17 GM PACKET PO SCH (11:00)
--- NOTE | 2017-06-16 11:25 | DISCHARGE SUMMARY ---
"Discharge Summary Discharge Date: 06/16/17 Discharging Provider: KIRBY Primary Care Provider: Dr. Alexandra Steinberg Condition at Discharge: Poor Discharge Disposition: 02 Transfer Acute Care Hosp Discharge Facility Name: [facility] - DIAGNOSES Admission Diagnoses: (1) Diabetic foot ulcer (2) GI bleed (3) Cellulitis (4) Acute type 2 diabetes mellitus with manifestations (5) Obesities, morbid (6) Anemia (7) Renal insufficiency (8) HTN (hypertension) (9) COPD (chronic obstructive pulmonary disease) (10) Hx of deep venous thrombosis (11) Medical non-compliance Discharge Diagnoses with Status of Each Condition: (1) Diabetic foot ulcer pt decline to any surgical intervention at this moment. continue to be managed by [facility] (2) GI bleed pt decline to have EGD and Colonoscopy. after transfusion of two unit of blood, she is stable.continue to be managed by [facility] (3) venous stasis dermatitis with Cellulitis treated with antibiotic, continue to be managed by [facility] (4) Acute type 2 diabetes mellitus with manifestations stable, (5) Obesities, morbid advise pt loss of weight (6) Anemia iron is prescribed. two unit of blood was transfused, she is stable.continue to be managed by [facility] (7) Renal insufficiency continue to be managed by [facility] (8) HTN (hypertension) stable (9) COPD (chronic obstructive pulmonary disease) stable (10) Hx of deep venous thrombosis no DVT from [place] (11) Medical non-compliance advise pt medical compliance (12) bacteremia treated with antibiotics, continue to be managed by [facility] (13) tachycardia with bradycardia syndrome, chronic Afib pt had severe tachycardia with bradycardia on last night with fatigue, and SOB. pt was transferred to [facility] for further evaluation and treatment. - HPI History of Present Illness: Ms. Kearney is 72-yrs-old female with a PMH significant for morbid obesity, uncontrolled DM2 foot infection, chronic iron deficiency anemia, medical non- compliance, CKD, chronic afib, HTN, hx of DVT, COPD, Sleep apnea with CPAP usage , peripheral neuropathy, incontinence, chronic back pain, psoriasis, who present ER complaints of left foot ulcer. pt is a poor historian. Pt report she had left foot ulcer for couple of months. She has been seen by [facility], and [place] [facility]. But the ulcer did not become better, she felt sickness. Pt denies fever, chill. She did not note blackish stool or GI bleeding. Pt denies chest pain, shortness of breath, fever, chill, night sweating. Xray of left foot reveals likely osteomyelitis of the base of the 5th metatarsal with overlying foot ulcer. Lab test in ER reveals BUN 46, creatinine 1.5, HGB 7.1. - CONSULTS | PROCEDURES Consultations: Dr. Kang, for foot infection and osteomyelitis, and Dr. Howard Roman for GI Procedures: pt decline all procedures - HOSPITAL COURSE Hospital Course: pt was admitted for DM foot infection, venous stasis dermatitis and cellulitis and anemia with GI bleeding. MRI reveals pt had osteomyelitis in her left foot. Blood culture reveals bacteremia. pt was treated with antibiotics. Pt had GI and orthopedics consult. Pt declined all procedures in this moment. Pt had hx of a fib. Pt developed tachycardia-bradycardia syndrome. [facility] was called for help. Pt was transferred to [facility] for advanced medical management. - ALLERGIES Allergies/Adverse Reactions: Allergies Allergy/AdvReac Type Severity Reaction Status Date / Time enalapril Allergy Unknown Verified 06/13/17 11:31 verapamil Allergy Unknown Verified 06/13/17 11:31 - MEDICATIONS Home Medications: Ambulatory Orders Medication Instructions Recorded Confirmed Insulin Glargine [Lantus Solostar] 80 units SQ DAILY 02/14/14 06/13/17 Lovastatin 40 mg PO QPM 02/14/14 06/13/17 Metoprolol Tartrate 50 mg PO BID 02/14/14 06/13/17 Gabapentin [Neurontin] 200 mg PO Q8H 05/15/16 06/13/17 Levothyroxine [Synthroid] 25 mcg PO DAILY 05/15/16 06/13/17 Albuterol 1.5 ml NEB BID 09/10/16 06/13/17 Cholecalciferol (Vitamin D3) 2,000 units PO DAILY 09/10/16 06/13/17 [Vitamin D3] Diltiazem HCl [Diltiazem ER] 120 mg PO DAILY 09/10/16 06/13/17 Ferrous Sulfate 325 mg PO DAILY 09/10/16 06/13/17 Furosemide 40 mg PO DAILY 09/10/16 06/13/17 Insulin Aspart [Novolog Flexpen] 15 units SQ AC 09/10/16 06/13/17 Insulin Glargine [Lantus Solostar] 90 units SQ QPM 09/10/16 06/13/17 Lisinopril 5 mg PO DAILY 09/10/16 06/13/17 Acetaminophen [Tylenol Extra 500 mg PO Q6H PRN 06/13/17 06/13/17 Strength] Aspirin Chewable [[facility] Rudi 81 mg PO DAILY 06/13/17 06/13/17 Aspirin] - PHYSICAL EXAM AT DISCHARGE General Appearance: positive: Alert, Mild distress. negative: Lethargic Eyes Bilateral: positive: Normal inspection, PERRL, No lid inflammation, Conjunctivae nml ENT: positive: ENT inspection nml, Pharynx nml, No signs of dehydration. negative: Purulent nasal drainage, Pharyngeal erythema, Oral lesions Neck: positive: Nml inspection, Thyroid nml, No JVD, Trachea midline. negative : Thyromegaly, Lymphadenopathy (R), Lymphadenopathy (L), Stiff neck, Swelling/ bruising, Tracheal deviation Respiratory: positive: Chest non-tender, No respiratory distress, Breath sounds nml. negative: Wheezes, Rales, Rhonchi Cardiovascular: positive: Irregularly irregular, Tachycardia, Systolic murmur. negative: Extrasystoles, Bradycardia Peripheral Pulses: positive: 2+ Abdomen: positive: Non-tender, No organomegaly, Nml bowel sounds. negative: Tenderness, Guarding, Rebound Back: positive: Nml inspection. negative: CVA tenderness (R), CVA tenderness (L ) Skin: positive: Warm, Dry, Skin rash, Decubitus. negative: Cyanosis, Diaphoresis, Pallor Extremities: positive: Full ROM, Pedal edema. negative: Calf tenderness, Ellen' s sign/cords Neurologic/Psychiatric: positive: Oriented x3, Sensation nml. negative: Sensory loss, Facial droop, Slurred/abnml speech, Depressed mood/affect - LABS Result Diagrams: 06/16/17 05:00 06/16/17 05:00 - FOLLOW UP Follow Up: pt was transferred to [facility] for further evaluation and treatment of tachycardia-bradycardia syndrome and other medical problems - TIME SPENT Time Spent in Discharge (Minutes): 55"
[2017-06-16 11:27] VITALS: BP 114/80
== END 2017-06-16 14:00 | disposition short-term general hospital (02) | DRG 638 ==
LOC: EDUNIT# → ED 11:22 → MS2 15:26
PROVIDERS: ADMIT Nurse Practitioner Gerontology; ATTEND Nurse Practitioner Gerontology
PROC: 30233N1 Transfusion of Nonautologous Red Blood Cells into Peripheral Vein, Percutaneous Approach (ICD-10-PCS; principal; 2017-06-13)
DX: E11.69 Type 2 diabetes mellitus with other specified complication (principal); M86.9 Osteomyelitis, unspecified; Z68.42 Body mass index [BMI] 45.0-49.9, adult; N28.9 Disorder of kidney and ureter, unspecified; L03.116 Cellulitis of left lower limb; L97.429 Non-pressure chronic ulcer of left heel and midfoot with unspecified severity; L97.421 Non-pressure chronic ulcer of left heel and midfoot limited to breakdown of skin; D64.9 Anemia, unspecified; D62 Acute posthemorrhagic anemia; L53.9 Erythematous condition, unspecified; I10 Essential (primary) hypertension; R78.81 Bacteremia; K92.2 Gastrointestinal hemorrhage, unspecified; I49.5 Sick sinus syndrome; B95.1 Streptococcus, group B, as the cause of diseases classified elsewhere; E66.01 Morbid (severe) obesity due to excess calories; E11.621 Type 2 diabetes mellitus with foot ulcer; D50.9 Iron deficiency anemia, unspecified; T45.4X6A Underdosing of iron and its compounds, initial encounter; I12.9 Hypertensive chronic kidney disease with stage 1 through stage 4 chronic kidney disease, or unspecified chronic kidney disease; E11.22 Type 2 diabetes mellitus with diabetic chronic kidney disease; N18.3 Chronic kidney disease, stage 3 (moderate); E11.42 Type 2 diabetes mellitus with diabetic polyneuropathy; J44.9 Chronic obstructive pulmonary disease, unspecified; G47.30 Sleep apnea, unspecified; I87.2 Venous insufficiency (chronic) (peripheral); I27.20 Pulmonary hypertension, unspecified; Z66 Do not resuscitate; Z79.4 Long term (current) use of insulin; Z86.718 Personal history of other venous thrombosis and embolism; Z79.82 Long term (current) use of aspirin; Z91.128 Patient's intentional underdosing of medication regimen for other reason; Z87.19 Personal history of other diseases of the digestive system
CPT/HCPCS: 36415; 71045; 80048; 80053; 82270; 82607; 82728; 83036; 83540; 83605; 83615; 83735; 83880; 84443; 84466; 85014; 85018; 85025; 85044; 85610; 86850; 86900; 86901; 86920; 87040; 87070; 87075; 87077; 87147; 87184; 87186; 87205; 93005; 93306; 94640; 96365; 96367; 99283; 99284